=== PATIENT | male | born 1970 | race Caucasian/White ===

== ENCOUNTER 2017-10-14 09:05 | Day surgery (SDC) | payer MEDICARE, MEDICAID ==
[~2017-10-14 09:05] MED LIST: BACL10TA PO; CALC500T11 PO; CITA20TA11 PO; DIPH1TAB PO; FENT1PAT7 TOP; GABA600T2 PO; HYDR8TAB18 PO; LORA1TAB PO; MIRT15TA8 PO; OMEP20CA10 PO; ONDA8TAB13 PO; PHE12.5T PO; ZIN220C PO; [UNRECOGNIZED DRUG - REMARK] TD
[2017-10-14] MEDS ORDERED: LIDOcaine 2% 5ml jelly ONE (09:45)
== END 2017-10-14 10:49 | disposition home or self-care (01) ==
LOC: WOUND CARE 09:05
PROVIDERS: ATTEND Surgery
DX: L97.811 Non-pressure chronic ulcer of other part of right lower leg limited to breakdown of skin (principal); L97.521 Non-pressure chronic ulcer of other part of left foot limited to breakdown of skin; I10 Essential (primary) hypertension; K21.9 Gastro-esophageal reflux disease without esophagitis; I95.1 Orthostatic hypotension; F15.10 Other stimulant abuse, uncomplicated; F17.210 Nicotine dependence, cigarettes, uncomplicated; F41.9 Anxiety disorder, unspecified; F32.9 Major depressive disorder, single episode, unspecified; F11.20 Opioid dependence, uncomplicated; Z90.49 Acquired absence of other specified parts of digestive tract; Z89.511 Acquired absence of right leg below knee
CPT/HCPCS: 11042; 87070; 87075; 87077; 87102; 87186; A6021

== ENCOUNTER 2017-10-20 10:29 | Outpatient (CLI) | payer MEDICARE, MEDICAID ==
[2017-10-20] MEDS ORDERED: LIDOcaine 2% 5ml jelly ONE (12:02)
[2017-10-20] MEDS ORDERED: gentamicin 0.1% topical ointment 15gm TP ONE (12:52)
== END 2017-10-20 13:05 | disposition home or self-care (01) ==
LOC: WOUND CARE 10:29 → EDSTATUS 10:30 → WOUND CARE 13:05
PROVIDERS: ATTEND Surgery
DX: L97.811 Non-pressure chronic ulcer of other part of right lower leg limited to breakdown of skin (principal); I10 Essential (primary) hypertension; K21.9 Gastro-esophageal reflux disease without esophagitis; F41.9 Anxiety disorder, unspecified; F32.9 Major depressive disorder, single episode, unspecified; F17.210 Nicotine dependence, cigarettes, uncomplicated; F11.20 Opioid dependence, uncomplicated; F15.10 Other stimulant abuse, uncomplicated; Z90.49 Acquired absence of other specified parts of digestive tract; Z89.511 Acquired absence of right leg below knee
CPT/HCPCS: 99215; A6223

== ENCOUNTER 2017-10-25 11:04 | Outpatient (CLI) | payer MEDICARE, MEDICAID ==
[2017-10-25] MEDS ORDERED: LIDOcaine 2% 5ml jelly ONE ×2 (11:25)
== END 2017-10-25 12:00 | disposition home or self-care (01) ==
LOC: WOUND CARE 11:04
PROVIDERS: ATTEND Surgery
DX: L97.811 Non-pressure chronic ulcer of other part of right lower leg limited to breakdown of skin (principal); I10 Essential (primary) hypertension; K21.9 Gastro-esophageal reflux disease without esophagitis; F41.9 Anxiety disorder, unspecified; F32.9 Major depressive disorder, single episode, unspecified; F17.210 Nicotine dependence, cigarettes, uncomplicated; F11.20 Opioid dependence, uncomplicated; F15.10 Other stimulant abuse, uncomplicated; Z90.49 Acquired absence of other specified parts of digestive tract; Z89.511 Acquired absence of right leg below knee
CPT/HCPCS: 93922; 99215; A6223; A6446

== ENCOUNTER 2017-10-27 11:15 | Outpatient (CLI) | payer MEDICARE, MEDICAID ==
[2017-10-27] MEDS ORDERED: gentamicin 0.1% topical ointment 15gm TP ONE (12:03)
== END 2017-10-27 12:15 | disposition home or self-care (01) ==
LOC: WOUND CARE 11:15 → EDSTATUS 11:30 → WOUND CARE 12:15
PROVIDERS: ATTEND Surgery
DX: L97.811 Non-pressure chronic ulcer of other part of right lower leg limited to breakdown of skin (principal); I10 Essential (primary) hypertension; K21.9 Gastro-esophageal reflux disease without esophagitis; F41.9 Anxiety disorder, unspecified; F32.9 Major depressive disorder, single episode, unspecified; F17.210 Nicotine dependence, cigarettes, uncomplicated; F11.20 Opioid dependence, uncomplicated; F15.10 Other stimulant abuse, uncomplicated; Z90.49 Acquired absence of other specified parts of digestive tract; Z89.511 Acquired absence of right leg below knee
CPT/HCPCS: 99215; A6209

== ENCOUNTER 2017-11-01 11:11 | Day surgery (SDC) | payer MEDICARE, MEDICAID ==
[2017-11-01] MEDS ORDERED: LIDOcaine 2% 5ml jelly ONE (11:53)
[2017-11-01] MEDS ORDERED: gentamicin 0.1% topical ointment 15gm TP ONE (12:40)
[2017-11-01] MEDS ORDERED: LEVO500T89 PO (14:04)
[2017-11-01] MEDS ORDERED: CLIN-80 PO (14:06)
== END 2017-11-01 12:48 | disposition home or self-care (01) ==
LOC: WOUND CARE 11:11
PROVIDERS: ATTEND Surgery
DX: L97.811 Non-pressure chronic ulcer of other part of right lower leg limited to breakdown of skin (principal); I10 Essential (primary) hypertension; K21.9 Gastro-esophageal reflux disease without esophagitis; F41.9 Anxiety disorder, unspecified; F32.9 Major depressive disorder, single episode, unspecified; F17.210 Nicotine dependence, cigarettes, uncomplicated; F11.20 Opioid dependence, uncomplicated; F15.10 Other stimulant abuse, uncomplicated; Z90.49 Acquired absence of other specified parts of digestive tract; Z89.511 Acquired absence of right leg below knee
CPT/HCPCS: 97597; A6223

== ENCOUNTER 2017-11-04 17:09 | Inpatient (IN) | payer MEDICARE, MEDICAID ==
[~2017-11-04] VITALS: Ht 198.1 cm; Wt 95.5 kg
[~2017-11-04 17:09] MED LIST changes: +CLIN-80 PO; +LEVO500T89 PO
[2017-11-04 19:09] LABS: BASOPHILS % (AUTO) 0.2 % (0-1); EOSINOPHILS # (AUTO) 0.4 X10'3 (0-0.9); EOSINOPHILS % (AUTO) 3.6 % (0-6); HEMATOCRIT 29.6 % (42.0-52.0); HEMOGLOBIN 9.9 g/dl (14.0-17.9); LYMPHOCYTES # (AUTO) 0.9 X10'3 (1.1-4.8); LYMPHOCYTES % (AUTO) 8.6 % (21-51); MEAN CORPUSCULAR HEMOGLOBIN 31.5 PG (27.0-31.0); MEAN CORPUSCULAR HGB CONC 33.5 % (33.0-36.5); MEAN PLATELET VOLUME 8.4 FL (7.4-10.4); MONOCYTES # (AUTO) 0.4 X10'3 (0-0.9); MONOCYTES % (AUTO) 4.2 % (2-12); NEUTROPHILS # (AUTO) 8.9 X10'3 (1.8-7.7); NEUTROPHILS % (AUTO) 83.4 % (42-75); PLATELET COUNT 116 X10'3 (140-440); RED BLOOD COUNT 3.15 X10'6 (4.70-6.10); RED CELL DISTRIBUTION WIDTH 14.8 % (11.5-14.5); WHITE BLOOD COUNT 10.6 X10'3 (4.5-11.0)
[2017-11-04 19:21] LABS: INR 1.1 INR; PARTIAL THROMBOPLASTIN TIME 26 SECONDS (22-32)
[2017-11-04 19:26] LABS: ALANINE AMINOTRANSFERASE 18 U/L (12-78); ALBUMIN 3.4 G/DL (3.4-5.0); ALBUMIN/GLOBULIN RATIO 0.9 (1.1-1.5); ALKALINE PHOSPHATASE 73 IU/L (46-116); ANION GAP 10 (8-16); ASPARTATE AMINO TRANSFERASE 18 U/L (10-37); BILIRUBIN,TOTAL 0.5 MG/DL (0.1-1.0); BLOOD UREA NITROGEN 19 MG/DL (7-18); BUN/CREATININE RATIO 8.3 (5.4-32.0); CALCIUM 8.3 MG/DL (8.5-10.1); CHLORIDE 109 MMOL/L (99-107); ETHANOL < 0.010 GM/DL (0.0-0.010); GLUCOSE 91 MG/DL (70-104); POTASSIUM 3.9 MMOL/L (3.5-5.1); SODIUM 141 MMOL/L (135-145); TOTAL CARBON DIOXIDE 22.5 MMOL/L (24-32); TOTAL PROTEIN 7.4 G/DL (6.4-8.2); eGFR 31 ML/MIN
[2017-11-04 19:27] LABS: ACETAMINOPHEN < 2.0 UG/ML (10-30)
[2017-11-04 19:37] LABS: CLARITY,URINE CLEAR (Clear); COLOR,URINE YELLOW (Yellow); GLUCOSE, URINE NEGATIVE (Neg); KETONES,URINE NEGATIVE (Neg); LEUKOCYTE ESTERASE ,URINE NEGATIVE (Neg); NITRITES, URINE NEGATIVE (Neg); OCCULT BLOOD,URINE NEGATIVE (Neg); PROTEIN,URINE TRACE mg/dl (Neg); UROBILINOGEN,URINE 0.2 E.U/dL (0.2-1.0)
[2017-11-04 19:42] LABS: UA COLLECTION TYPE URINAL
[2017-11-04 19:53] LABS: URINE AMPHETAMINE SCREEN NEGATIVE (Neg)
[2017-11-04 19:56] LABS: URINE BARBITUATE SCREEN NEGATIVE (Neg); URINE BENZODIAZEPINES SCREEN NEGATIVE (Neg); URINE CANNABINOID SCREEN NEGATIVE (Neg); URINE COCAINE SCREEN NEGATIVE (Neg); URINE METHADONE SCREEN NEGATIVE (Neg); URINE OPIATE SCREEN POSITIVE (Neg); URINE PHENCYCLIDINE SCREEN NEGATIVE (Neg)
[2017-11-04 20:18] LABS: BACTERIA,URINE NONE SEEN /HPF (Neg); RBC,URINE 0-2 /HPF (0-2); SQUAMOUS EPITHELIAL CELL,UR FEW /LPF (FEW); WBC,URINE 0-4 /HPF (0-4)
[2017-11-04 20:19] LABS: HYALINE CASTS 0-3 /LPF (NEGATIVE); MUCUS STRANDS FEW /LPF (Neg); YEAST FEW /HPF (NEGATIVE)
[2017-11-04] MEDS ORDERED: normal saline 1000ML IV soln IVB ONE (21:05)
[2017-11-04] MEDS ORDERED: mag hydrox/Alum hydrox/simeth 30ml oral suspension PO PRN (22:20)
[2017-11-04] MEDS ORDERED: potassium Cl 20 mEq SR tablet PO PRN ×2 (22:20)
[2017-11-04] MEDS ORDERED: magnesium Cl slow-release 64mg tablet PO PRN (22:20)
[2017-11-04] MEDS ORDERED: magnesium 4gm in 100ml NS 100 ML IV PRN (22:20)
[2017-11-04] MEDS ORDERED: potassium Cl 40MEQ/NS 500ml 500 ML IV PRN ×2 (22:20)
[2017-11-04] MEDS ORDERED: magnesium 2GM in 50ml NS 50 ML IV PRN (22:20)
[2017-11-04] MEDS ORDERED: magnesium hydroxide 30ml (MOM) UD suspension PO PRN (22:20)
[2017-11-04] MEDS ORDERED: acetaminophen 325mg tablet PO PRN (22:20)
[2017-11-05] VITALS: BP 109/61
[2017-11-05] MEDS: HYDROcodone/acetaminophen 5mg/325mg tablet PO PRN ×4 (00:34→17:44)
[2017-11-05] MEDS: diphenoxylate/atropine tablet (Lomotil) PO SCH ×4 (00:35→23:34)
[2017-11-05] MEDS: normal saline 1000ml 1,000 ML IV SCH ×3 (00:50→17:44)
[2017-11-05 06:13] LABS: BASOPHILS % (AUTO) 0.3 % (0-1); EOSINOPHILS # (AUTO) 0.4 X10'3 (0-0.9); EOSINOPHILS % (AUTO) 5.3 % (0-6); HEMATOCRIT 26.6 % (42.0-52.0); HEMOGLOBIN 8.9 g/dl (14.0-17.9); LYMPHOCYTES # (AUTO) 1.1 X10'3 (1.1-4.8); LYMPHOCYTES % (AUTO) 15.3 % (21-51); MEAN CORPUSCULAR HEMOGLOBIN 31.8 PG (27.0-31.0); MEAN CORPUSCULAR HGB CONC 33.7 % (33.0-36.5); MEAN CORPUSCULAR VOLUME 94.5 FL (78-98); MEAN PLATELET VOLUME 8.6 FL (7.4-10.4); MONOCYTES # (AUTO) 0.3 X10'3 (0-0.9); NEUTROPHILS # (AUTO) 5.1 X10'3 (1.8-7.7); NEUTROPHILS % (AUTO) 74.1 % (42-75); PLATELET COUNT 101 X10'3 (140-440); RED BLOOD COUNT 2.81 X10'6 (4.70-6.10); RED CELL DISTRIBUTION WIDTH 14.9 % (11.5-14.5); WHITE BLOOD COUNT 6.9 X10'3 (4.5-11.0)
[2017-11-05 06:32] LABS: ALBUMIN 2.8 G/DL (3.4-5.0); ANION GAP 12 (8-16); BLOOD UREA NITROGEN 17 MG/DL (7-18); BUN/CREATININE RATIO 8.9 (5.4-32.0); CALCIUM 8.1 MG/DL (8.5-10.1); CHLORIDE 113 MMOL/L (99-107); GLUCOSE 83 MG/DL (70-104); POTASSIUM 3.5 MMOL/L (3.5-5.1); SODIUM 146 MMOL/L (135-145); TOTAL CARBON DIOXIDE 21.1 MMOL/L (24-32); eGFR 39 ML/MIN
[2017-11-05] MEDS ORDERED: HYDR8TAB16 PO (06:32)
[2017-11-05 06:35] LABS: MAGNESIUM 0.9 MG/DL (1.5-2.4)
[2017-11-05] MEDS: K and/or MAG REPLACEMENT MC SCH (06:58)
[2017-11-05 07:00] VITALS: BP 102/55
[2017-11-05] MEDS: heparin, porcine 5000 units/ml vial SQ SCH ×2 (08:00→20:00)
[2017-11-05] MEDS ORDERED: non-formulary drug (Omeprazole 1 CAP) PO SCH (08:00)
[2017-11-05] MEDS: levoFLOXACIN-Levaquin 750MG/D5 150 ML IV SCH (08:12)
[2017-11-05] MEDS: zinc sulfate 220mg capsule PO SCH ×2 (08:12→19:59)
[2017-11-05] MEDS: mirtazapine 15mg tablet PO SCH (08:12)
[2017-11-05] MEDS: citalopram 20mg tablet PO SCH (08:12)
[2017-11-05] MEDS: gabapentin 300mg capsule PO SCH ×3 (08:13→20:52)
[2017-11-05] MEDS: pantoprazole 40mg Tablet.DR PO SCH (08:13)
[2017-11-05 11:00] VITALS: BP 86/49
[2017-11-05] MEDS ORDERED: thiamine inj. 100 MG, MVI, adult No.4 with vit. K 10 ML in dextrose 5% water 500ml 489 ML IV SCH ×3 (11:25)
[2017-11-05] MEDS: lactobacillus rhamnosus 10,000 MMU CELLS/CAPSULE PO SCH (17:44)
[2017-11-05] MEDS: Protein Smoothie (high protein) 240ml (8oz) cup PO SCH (18:27)
[2017-11-05 19:00] VITALS: BP 97/50
[2017-11-05] MEDS: morphine 2 MG/ML inj. syringe IV PRN ×2 (19:30→23:34)
[2017-11-05] MEDS: ondansetron/PF 4mg/2ml inj IV PRN (19:59)
[2017-11-06] VITALS: BP 90/52
[2017-11-06] MEDS: morphine 2 MG/ML inj. syringe IV PRN (05:04)
[2017-11-06 06:23] LABS: BASOPHILS % (AUTO) 0.3 % (0-1); EOSINOPHILS # (AUTO) 0.2 X10'3 (0-0.9); EOSINOPHILS % (AUTO) 4.5 % (0-6); HEMATOCRIT 25.2 % (42.0-52.0); HEMOGLOBIN 8.7 g/dl (14.0-17.9); LYMPHOCYTES # (AUTO) 0.9 X10'3 (1.1-4.8); LYMPHOCYTES % (AUTO) 17.8 % (21-51); MEAN CORPUSCULAR HEMOGLOBIN 32.2 PG (27.0-31.0); MEAN CORPUSCULAR HGB CONC 34.4 % (33.0-36.5); MEAN CORPUSCULAR VOLUME 93.7 FL (78-98); MEAN PLATELET VOLUME 8.6 FL (7.4-10.4); MONOCYTES # (AUTO) 0.3 X10'3 (0-0.9); MONOCYTES % (AUTO) 5.5 % (2-12); NEUTROPHILS # (AUTO) 3.4 X10'3 (1.8-7.7); NEUTROPHILS % (AUTO) 71.9 % (42-75); PLATELET COUNT 95 X10'3 (140-440); RED BLOOD COUNT 2.69 X10'6 (4.70-6.10); RED CELL DISTRIBUTION WIDTH 14.9 % (11.5-14.5); WHITE BLOOD COUNT 4.8 X10'3 (4.5-11.0)
[2017-11-06 06:57] VITALS: BP 89/41
[2017-11-06 07:17] LABS: ALBUMIN 2.7 G/DL (3.4-5.0); ANION GAP 10 (8-16); BLOOD UREA NITROGEN 15 MG/DL (7-18); BUN/CREATININE RATIO 10.7 (5.4-32.0); CALCIUM 8.2 MG/DL (8.5-10.1); CHLORIDE 114 MMOL/L (99-107); GLUCOSE 90 MG/DL (70-104); MAGNESIUM 1.7 MG/DL (1.5-2.4); POTASSIUM 3.5 MMOL/L (3.5-5.1); SODIUM 144 MMOL/L (135-145); TOTAL CARBON DIOXIDE 20.4 MMOL/L (24-32); eGFR 55 ML/MIN
[2017-11-06] MEDS: K and/or MAG REPLACEMENT MC SCH (08:00)
[2017-11-06] MEDS: heparin, porcine 5000 units/ml vial SQ SCH ×2 (08:00→19:30)
[2017-11-06] MEDS ORDERED: enoxaparin 40mg/0.4ml syringe SUBCUT SCH (08:00)
[2017-11-06] MEDS: mirtazapine 15mg tablet PO SCH (08:37)
[2017-11-06] MEDS: zinc sulfate 220mg capsule PO SCH ×2 (08:37→19:30)
[2017-11-06] MEDS: citalopram 20mg tablet PO SCH (08:38)
[2017-11-06] MEDS: levoFLOXACIN-Levaquin 750MG/D5 150 ML IV SCH (08:38)
[2017-11-06] MEDS: gabapentin 300mg capsule PO SCH ×3 (08:39→21:23)
[2017-11-06] MEDS: pantoprazole 40mg Tablet.DR PO SCH (08:40)
[2017-11-06] MEDS: lactobacillus rhamnosus 10,000 MMU CELLS/CAPSULE PO SCH ×2 (08:40→16:34)
[2017-11-06] MEDS: HYDROcodone/acetaminophen 5mg/325mg tablet PO PRN (08:41)
[2017-11-06] MEDS: Protein Smoothie (high protein) 240ml (8oz) cup PO SCH ×3 (08:42→19:28)
[2017-11-06] MEDS: diphenoxylate/atropine tablet (Lomotil) PO SCH ×2 (09:08→16:34)
[2017-11-06 11:00] VITALS: BP 91/52
[2017-11-06] MEDS: oxyCODONE IR 5mg (immed. release) tablet PO PRN (13:24)
[2017-11-06 19:00] VITALS: BP 103/60
[2017-11-06] MEDS: oxyCODONE SR 10mg (sust. release) tab PO SCH (19:30)
[2017-11-07] VITALS: BP 104/62
[2017-11-07] MEDS: diphenoxylate/atropine tablet (Lomotil) PO SCH ×3 (00:28→16:09)
[2017-11-07] MEDS: oxyCODONE IR 5mg (immed. release) tablet PO PRN ×2 (01:29→22:53)
[2017-11-07 07:01] LABS: BASOPHILS % (AUTO) 0.2 % (0-1); EOSINOPHILS # (AUTO) 0.2 X10'3 (0-0.9); EOSINOPHILS % (AUTO) 4.2 % (0-6); HEMATOCRIT 26.1 % (42.0-52.0); HEMOGLOBIN 8.8 g/dl (14.0-17.9); LYMPHOCYTES # (AUTO) 1.3 X10'3 (1.1-4.8); LYMPHOCYTES % (AUTO) 32.3 % (21-51); MEAN CORPUSCULAR HEMOGLOBIN 31.7 PG (27.0-31.0); MEAN CORPUSCULAR HGB CONC 33.7 % (33.0-36.5); MEAN CORPUSCULAR VOLUME 93.9 FL (78-98); MEAN PLATELET VOLUME 8.6 FL (7.4-10.4); MONOCYTES # (AUTO) 0.3 X10'3 (0-0.9); MONOCYTES % (AUTO) 7.2 % (2-12); NEUTROPHILS # (AUTO) 2.2 X10'3 (1.8-7.7); NEUTROPHILS % (AUTO) 56.1 % (42-75); PLATELET COUNT 103 X10'3 (140-440); RED BLOOD COUNT 2.78 X10'6 (4.70-6.10); RED CELL DISTRIBUTION WIDTH 14.9 % (11.5-14.5); WHITE BLOOD COUNT 3.9 X10'3 (4.5-11.0)
[2017-11-07 07:09] LABS: ALBUMIN 2.6 G/DL (3.4-5.0); ANION GAP 10 (8-16); BLOOD UREA NITROGEN 14 MG/DL (7-18); BUN/CREATININE RATIO 11.7 (5.4-32.0); CALCIUM 8.6 MG/DL (8.5-10.1); CHLORIDE 112 MMOL/L (99-107); GLUCOSE 93 MG/DL (70-104); MAGNESIUM 1.3 MG/DL (1.5-2.4); POTASSIUM 3.5 MMOL/L (3.5-5.1); SODIUM 144 MMOL/L (135-145); TOTAL CARBON DIOXIDE 22.3 MMOL/L (24-32); eGFR 65 ML/MIN
[2017-11-07 07:32] VITALS: BP 104/61
[2017-11-07] MEDS: K and/or MAG REPLACEMENT MC SCH (07:37)
[2017-11-07] MEDS: mirtazapine 15mg tablet PO SCH (07:51)
[2017-11-07] MEDS: citalopram 20mg tablet PO SCH (07:51)
[2017-11-07] MEDS: pantoprazole 40mg Tablet.DR PO SCH (07:51)
[2017-11-07] MEDS: oxyCODONE SR 10mg (sust. release) tab PO SCH ×2 (07:51→20:26)
[2017-11-07] MEDS: lactobacillus rhamnosus 10,000 MMU CELLS/CAPSULE PO SCH ×2 (07:51→18:03)
[2017-11-07] MEDS: clonazePAM 0.5mg tablet PO SCH ×2 (07:51→20:26)
[2017-11-07] MEDS: gabapentin 300mg capsule PO SCH ×3 (07:51→20:26)
[2017-11-07] MEDS: Protein Smoothie (high protein) 240ml (8oz) cup PO SCH ×3 (07:52→18:01)
[2017-11-07] MEDS: heparin, porcine 5000 units/ml vial SQ SCH ×2 (07:58→20:00)
[2017-11-07] MEDS: zinc sulfate 220mg capsule PO SCH ×2 (07:58→20:26)
[2017-11-07] MEDS: levoFLOXACIN 750MG TABLET PO SCH (16:04)
[2017-11-07 19:30] VITALS: BP 93/56
[2017-11-07] MEDS: ondansetron/PF 4mg/2ml inj IV PRN (21:53)
[2017-11-07 23:00] VITALS: BP 115/86
[2017-11-08] MEDS: diphenoxylate/atropine tablet (Lomotil) PO SCH ×3 (00:04→15:38)
[2017-11-08 06:06] LABS: BASOPHILS % (AUTO) 0.3 % (0-1); EOSINOPHILS # (AUTO) 0.2 X10'3 (0-0.9); EOSINOPHILS % (AUTO) 4.7 % (0-6); HEMATOCRIT 26.5 % (42.0-52.0); HEMOGLOBIN 9.1 g/dl (14.0-17.9); LYMPHOCYTES # (AUTO) 1.4 X10'3 (1.1-4.8); MEAN CORPUSCULAR HGB CONC 34.3 % (33.0-36.5); MEAN CORPUSCULAR VOLUME 93.4 FL (78-98); MEAN PLATELET VOLUME 8.6 FL (7.4-10.4); MONOCYTES # (AUTO) 0.2 X10'3 (0-0.9); MONOCYTES % (AUTO) 5.7 % (2-12); NEUTROPHILS # (AUTO) 2.4 X10'3 (1.8-7.7); NEUTROPHILS % (AUTO) 56.3 % (42-75); PLATELET COUNT 103 X10'3 (140-440); RED BLOOD COUNT 2.83 X10'6 (4.70-6.10); RED CELL DISTRIBUTION WIDTH 14.5 % (11.5-14.5); WHITE BLOOD COUNT 4.3 X10'3 (4.5-11.0)
[2017-11-08 06:24] LABS: ALBUMIN 2.7 G/DL (3.4-5.0); ANION GAP 8 (8-16); BLOOD UREA NITROGEN 19 MG/DL (7-18); BUN/CREATININE RATIO 14.6 (5.4-32.0); CALCIUM 8.4 MG/DL (8.5-10.1); CHLORIDE 110 MMOL/L (99-107); GLUCOSE 86 MG/DL (70-104); POTASSIUM 3.6 MMOL/L (3.5-5.1); SODIUM 141 MMOL/L (135-145); TOTAL CARBON DIOXIDE 22.8 MMOL/L (24-32); eGFR 60 ML/MIN
[2017-11-08] MEDS ORDERED: magnesium 4gm in 100ml NS 100 ML IV PRN (06:45)
[2017-11-08] MEDS ORDERED: potassium Cl 20 mEq SR tablet PO PRN ×2 (06:45)
[2017-11-08] MEDS ORDERED: magnesium 2GM in 50ml NS 50 ML IV PRN (06:45)
[2017-11-08] MEDS ORDERED: potassium Cl 40MEQ/NS 500ml 500 ML IV PRN ×2 (06:45)
[2017-11-08 06:57] VITALS: BP 100/55
[2017-11-08] MEDS: lactobacillus rhamnosus 10,000 MMU CELLS/CAPSULE PO SCH ×2 (07:16→17:16)
[2017-11-08] MEDS: mirtazapine 15mg tablet PO SCH (07:17)
[2017-11-08] MEDS: citalopram 20mg tablet PO SCH (07:17)
[2017-11-08] MEDS: oxyCODONE SR 10mg (sust. release) tab PO SCH ×2 (07:17→20:43)
[2017-11-08] MEDS: gabapentin 300mg capsule PO SCH ×3 (07:17→20:43)
[2017-11-08] MEDS: clonazePAM 0.5mg tablet PO SCH ×2 (07:17→20:43)
[2017-11-08] MEDS: pantoprazole 40mg Tablet.DR PO SCH (07:17)
[2017-11-08] MEDS: zinc sulfate 220mg capsule PO SCH ×2 (07:18→20:43)
[2017-11-08] MEDS: magnesium Cl slow-release 64mg tablet PO PRN ×2 (07:18→20:42)
[2017-11-08] MEDS: Protein Smoothie (high protein) 240ml (8oz) cup PO SCH ×3 (08:00→18:04)
[2017-11-08] MEDS: heparin, porcine 5000 units/ml vial SQ SCH ×2 (08:00→20:00)
[2017-11-08] MEDS: K and/or MAG REPLACEMENT MC SCH (08:00)
[2017-11-08 08:29] LABS: HEP A AB, IGM Negative (Negative); HEP B CORE AB, IGM Negative (Negative); HEPATITIS C ANTIBODY <0.1 s/co ratio (0.0-0.9)
[2017-11-08 11:00] VITALS: BP 88/49
[2017-11-08] MEDS: levoFLOXACIN 750MG TABLET PO SCH (11:01)
[2017-11-08] MEDS ORDERED: normal saline 500ml IV soln 1,000 ML IV ONE (12:15)
[2017-11-08 12:25] VITALS: BP 88/49
[2017-11-08 15:37] VITALS: BP 103/66
[2017-11-08] MEDS: oxyCODONE IR 5mg (immed. release) tablet PO PRN (15:38)
[2017-11-08 20:00] VITALS: BP 94/57
[2017-11-08] MEDS: nicotine 7mg patch - 24hr TD SCH (22:37)
[2017-11-08 23:00] VITALS: BP 95/50
[2017-11-09] MEDS: diphenoxylate/atropine tablet (Lomotil) PO SCH ×3 (00:14→16:43)
[2017-11-09] MEDS: oxyCODONE IR 5mg (immed. release) tablet PO PRN ×2 (01:26→11:57)
[2017-11-09] MEDS: ondansetron/PF 4mg/2ml inj IV PRN ×2 (04:49→13:47)
[2017-11-09 06:02] LABS: BASOPHILS % (AUTO) 0.2 % (0-1); EOSINOPHILS # (AUTO) 0.3 X10'3 (0-0.9); EOSINOPHILS % (AUTO) 5.6 % (0-6); HEMATOCRIT 27.9 % (42.0-52.0); HEMOGLOBIN 9.8 g/dl (14.0-17.9); LYMPHOCYTES # (AUTO) 1.6 X10'3 (1.1-4.8); MEAN CORPUSCULAR HEMOGLOBIN 32.2 PG (27.0-31.0); MEAN CORPUSCULAR VOLUME 91.9 FL (78-98); MEAN PLATELET VOLUME 7.9 FL (7.4-10.4); MONOCYTES # (AUTO) 0.4 X10'3 (0-0.9); MONOCYTES % (AUTO) 7.5 % (2-12); NEUTROPHILS # (AUTO) 2.6 X10'3 (1.8-7.7); NEUTROPHILS % (AUTO) 53.7 % (42-75); PLATELET COUNT 110 X10'3 (140-440); RED BLOOD COUNT 3.03 X10'6 (4.70-6.10); RED CELL DISTRIBUTION WIDTH 14.4 % (11.5-14.5); WHITE BLOOD COUNT 4.8 X10'3 (4.5-11.0)
[2017-11-09 06:22] LABS: ALBUMIN 2.9 G/DL (3.4-5.0); ANION GAP 11 (8-16); BLOOD UREA NITROGEN 18 MG/DL (7-18); BUN/CREATININE RATIO 16.4 (5.4-32.0); CALCIUM 8.6 MG/DL (8.5-10.1); CHLORIDE 109 MMOL/L (99-107); GLUCOSE 83 MG/DL (70-104); POTASSIUM 3.7 MMOL/L (3.5-5.1); SODIUM 142 MMOL/L (135-145); TOTAL CARBON DIOXIDE 21.9 MMOL/L (24-32); eGFR 72 ML/MIN
[2017-11-09 06:41] LABS: MAGNESIUM 0.9 MG/DL (1.5-2.4)
[2017-11-09 06:53] VITALS: BP 94/57
[2017-11-09] MEDS: citalopram 20mg tablet PO SCH (07:09)
[2017-11-09] MEDS: lactobacillus rhamnosus 10,000 MMU CELLS/CAPSULE PO SCH ×2 (07:09→16:43)
[2017-11-09] MEDS: clonazePAM 0.5mg tablet PO SCH ×2 (07:09→21:18)
[2017-11-09] MEDS: gabapentin 300mg capsule PO SCH ×3 (07:10→21:18)
[2017-11-09] MEDS: pantoprazole 40mg Tablet.DR PO SCH (07:10)
[2017-11-09] MEDS: oxyCODONE SR 10mg (sust. release) tab PO SCH ×2 (07:10→21:18)
[2017-11-09] MEDS: nicotine 7mg patch - 24hr TD SCH (07:11)
[2017-11-09] MEDS: zinc sulfate 220mg capsule PO SCH ×2 (07:12→21:18)
[2017-11-09] MEDS: heparin, porcine 5000 units/ml vial SQ SCH ×2 (07:13→20:00)
[2017-11-09] MEDS: mirtazapine 15mg tablet PO SCH (07:13)
[2017-11-09] MEDS: magnesium Cl slow-release 64mg tablet PO PRN (07:14)
[2017-11-09] MEDS: K and/or MAG REPLACEMENT MC SCH (08:00)
[2017-11-09] MEDS: Protein Smoothie (high protein) 240ml (8oz) cup PO SCH ×3 (08:15→17:54)
[2017-11-09 11:00] VITALS: BP 92/54
[2017-11-09] MEDS ORDERED: magnesium 2GM in 50ml NS 50 ML IV ONE (11:10)
[2017-11-09] MEDS: levoFLOXACIN 750MG TABLET PO SCH (11:56)
[2017-11-09 18:00] VITALS: BP 99/58
[2017-11-09 23:00] VITALS: BP 98/53
[2017-11-10] MEDS: diphenoxylate/atropine tablet (Lomotil) PO SCH ×2 (00:19→08:26)
[2017-11-10] MEDS: oxyCODONE IR 5mg (immed. release) tablet PO PRN ×2 (02:01→11:36)
[2017-11-10 06:43] LABS: MAGNESIUM 1.2 MG/DL (1.5-2.4); POTASSIUM 3.6 MMOL/L (3.5-5.1)
[2017-11-10] MEDS: K and/or MAG REPLACEMENT MC SCH (08:00)
[2017-11-10] MEDS: heparin, porcine 5000 units/ml vial SQ SCH (08:00)
[2017-11-10] MEDS: mirtazapine 15mg tablet PO SCH (08:00)
[2017-11-10] MEDS: lactobacillus rhamnosus 10,000 MMU CELLS/CAPSULE PO SCH (08:24)
[2017-11-10] MEDS: nicotine 7mg patch - 24hr TD SCH (08:24)
[2017-11-10] MEDS: pantoprazole 40mg Tablet.DR PO SCH (08:25)
[2017-11-10] MEDS: citalopram 20mg tablet PO SCH (08:25)
[2017-11-10] MEDS: gabapentin 300mg capsule PO SCH ×2 (08:26→13:04)
[2017-11-10] MEDS: oxyCODONE SR 10mg (sust. release) tab PO SCH (08:26)
[2017-11-10] MEDS: clonazePAM 0.5mg tablet PO SCH (08:26)
[2017-11-10] MEDS: zinc sulfate 220mg capsule PO SCH (08:27)
[2017-11-10] MEDS: Protein Smoothie (high protein) 240ml (8oz) cup PO SCH ×2 (08:29→13:02)
[2017-11-10 08:35] VITALS: BP 98/52
[2017-11-10] MEDS: levoFLOXACIN 750MG TABLET PO SCH (11:35)
[2017-11-10 12:00] VITALS: BP 93/45
[2017-11-10] MEDS ORDERED: OXYC10TA57 PO (12:08)
[2017-11-10] MEDS ORDERED: OXYC-658 PO (12:08)
[2017-11-10] MEDS ORDERED: LORA1TAB PO (12:09)
[2017-11-10] MEDS ORDERED: MAGN400C PO (15:40)
== END 2017-11-10 17:10 | disposition home or self-care (01) | DRG 917 ==
LOC: ER 17:10 → ED HOLD 22:16 → MED 3N 23:38
PROVIDERS: ADMIT Internal Medicine; ATTEND Internal Medicine
DX: T40.2X1A Poisoning by other opioids, accidental (unintentional), initial encounter (principal); G92 Toxic encephalopathy; N17.9 Acute kidney failure, unspecified; I95.9 Hypotension, unspecified; D69.59 Other secondary thrombocytopenia; G62.9 Polyneuropathy, unspecified; L03.311 Cellulitis of abdominal wall; K72.90 Hepatic failure, unspecified without coma; R44.3 Hallucinations, unspecified; L97.919 Non-pressure chronic ulcer of unspecified part of right lower leg with unspecified severity; T42.8X1A Poisoning by antiparkinsonism drugs and other central muscle-tone depressants, accidental (unintentional), initial encounter; T42.4X1A Poisoning by benzodiazepines, accidental (unintentional), initial encounter; F31.9 Bipolar disorder, unspecified; D63.8 Anemia in other chronic diseases classified elsewhere; E86.0 Dehydration; F41.9 Anxiety disorder, unspecified; G89.29 Other chronic pain; I10 Essential (primary) hypertension; K21.9 Gastro-esophageal reflux disease without esophagitis; K76.9 Liver disease, unspecified; L98.9 Disorder of the skin and subcutaneous tissue, unspecified; M54.9 Dorsalgia, unspecified; Z93.3 Colostomy status; Z88.1 Allergy status to other antibiotic agents; Z88.0 Allergy status to penicillin; Y92.89 Other specified places as the place of occurrence of the external cause
CPT/HCPCS: 36415; 70450; 71045; 80048; 80053; 80305; 80320; 80329; 81001; 82140; 82948; 83735; 84132; 85025; 85610; 85730; 86705; 86709; 86803; 87070; 93005; 97162; 97530; 99285; A4315; A4371; A6209; A6223; A6446; A6449; J1644; J1956; J2270; J2405; J3411; J3475; J7030; J7060

== ENCOUNTER 2017-11-30 10:36 | Day surgery (SDC) | payer MEDICARE, MEDICAID ==
[~2017-11-30 10:36] MED LIST changes: -BACL10TA PO; -CLIN-80 PO; -FENT1PAT7 TOP; -HYDR8TAB18 PO; +MAGN400C PO; -ONDA8TAB13 PO; +OXYC-658 PO; +OXYC10TA57 PO; -[UNRECOGNIZED DRUG - REMARK] TD
[2017-11-30] MEDS ORDERED: CLOB15CR4 TOP (12:18)
== END 2017-11-30 12:00 | disposition home or self-care (01) ==
LOC: WOUND CARE 10:36
PROVIDERS: ATTEND Surgery
DX: L97.811 Non-pressure chronic ulcer of other part of right lower leg limited to breakdown of skin (principal); I10 Essential (primary) hypertension; K21.9 Gastro-esophageal reflux disease without esophagitis; F41.9 Anxiety disorder, unspecified; F32.9 Major depressive disorder, single episode, unspecified; F17.210 Nicotine dependence, cigarettes, uncomplicated; F11.20 Opioid dependence, uncomplicated; F15.10 Other stimulant abuse, uncomplicated; Z90.49 Acquired absence of other specified parts of digestive tract; Z89.511 Acquired absence of right leg below knee
CPT/HCPCS: 17250; A6021; A6206; A6243; A6446

== ENCOUNTER 2017-12-07 10:37 | Outpatient (CLI) | payer MEDICARE, MEDICAID ==
[~2017-12-07 10:37] MED LIST changes: +CLOB15CR4 TOP
[2017-12-07] MEDS ORDERED: LIDOcaine 2% 5ml jelly ONE (11:55)
== END 2017-12-07 12:30 | disposition home or self-care (01) ==
LOC: WOUND CARE 10:37
PROVIDERS: ATTEND Surgery
DX: L97.811 Non-pressure chronic ulcer of other part of right lower leg limited to breakdown of skin (principal); I10 Essential (primary) hypertension; K21.9 Gastro-esophageal reflux disease without esophagitis; F41.9 Anxiety disorder, unspecified; F32.9 Major depressive disorder, single episode, unspecified; F17.210 Nicotine dependence, cigarettes, uncomplicated; F11.20 Opioid dependence, uncomplicated; F15.10 Other stimulant abuse, uncomplicated; Z90.49 Acquired absence of other specified parts of digestive tract; Z89.511 Acquired absence of right leg below knee
CPT/HCPCS: 99215; A6446

== ENCOUNTER 2017-12-15 11:02 | Day surgery (SDC) | payer MEDICARE, MEDICAID ==
[~2017-12-15 11:02] MED LIST changes: -LEVO500T89 PO
[2017-12-15] MEDS ORDERED: LIDOcaine 2% 5ml jelly ONE (11:31)
== END 2017-12-15 12:30 | disposition home or self-care (01) ==
LOC: WOUND CARE 11:02
PROVIDERS: ATTEND Surgery
DX: L97.811 Non-pressure chronic ulcer of other part of right lower leg limited to breakdown of skin (principal); K21.9 Gastro-esophageal reflux disease without esophagitis; F41.9 Anxiety disorder, unspecified; F32.9 Major depressive disorder, single episode, unspecified; F17.210 Nicotine dependence, cigarettes, uncomplicated; F11.20 Opioid dependence, uncomplicated; F15.10 Other stimulant abuse, uncomplicated; I10 Essential (primary) hypertension; Z90.49 Acquired absence of other specified parts of digestive tract; Z89.511 Acquired absence of right leg below knee
CPT/HCPCS: 97597; A6206; A6213

== ENCOUNTER 2018-01-13 10:08 | Outpatient (CLI) | payer MEDICARE, MEDICAID ==
[2018-01-13] MEDS ORDERED: LIDOcaine 2% 5ml jelly ONE (11:02)
== END 2018-01-13 11:39 | disposition home or self-care (01) ==
LOC: WOUND CARE 10:08
PROVIDERS: ATTEND Surgery
DX: L97.811 Non-pressure chronic ulcer of other part of right lower leg limited to breakdown of skin (principal); L88 Pyoderma gangrenosum; K21.9 Gastro-esophageal reflux disease without esophagitis; F41.9 Anxiety disorder, unspecified; F32.9 Major depressive disorder, single episode, unspecified; F17.210 Nicotine dependence, cigarettes, uncomplicated; F11.20 Opioid dependence, uncomplicated; F15.10 Other stimulant abuse, uncomplicated; I10 Essential (primary) hypertension; Z90.49 Acquired absence of other specified parts of digestive tract; Z89.511 Acquired absence of right leg below knee
CPT/HCPCS: 99215

== ENCOUNTER 2018-01-27 10:51 | Outpatient (CLI) | payer MEDICARE, MEDICAID | END 2018-01-27 12:07 | disposition home or self-care (01) | LOC: WOUND CARE 10:51 | PROVIDERS: ATTEND Surgery | DX: L97.812 Non-pressure chronic ulcer of other part of right lower leg with fat layer exposed (principal); L88 Pyoderma gangrenosum; K21.9 Gastro-esophageal reflux disease without esophagitis; F41.9 Anxiety disorder, unspecified; F32.9 Major depressive disorder, single episode, unspecified; F17.210 Nicotine dependence, cigarettes, uncomplicated; F11.20 Opioid dependence, uncomplicated; F15.10 Other stimulant abuse, uncomplicated; I10 Essential (primary) hypertension; Z90.49 Acquired absence of other specified parts of digestive tract; Z89.511 Acquired absence of right leg below knee | CPT/HCPCS: 99215; A6449 ==

== ENCOUNTER 2018-02-06 15:07 | Outpatient (CLI) | payer MEDICARE, MEDICAID ==
[~2018-02-06] VITALS: Ht 167.6 cm; Wt 90.7 kg
[2018-02-06 16:54] LABS: PRE OP PROTIME 10.2 SECONDS (9.0-12.0)
[2018-02-06 16:59] LABS: ALBUMIN 3.8 G/DL (3.4-5.0); ALKALINE PHOSPHATASE 75 IU/L (46-116); BLOOD UREA NITROGEN 18 MG/DL (7-18); CALCIUM 8.8 MG/DL (8.5-10.1); CHLORIDE 109 MMOL/L (99-107); PRE OP ALT 16 U/L (30-65); PRE OP ANION GAP 13 (8-16); PRE OP AST 16 U/L (10-37); PRE OP BILIRUB, TOTAL 0.3 MG/DL (0.0-1.0); PRE OP GLUCOSE 67 MG/DL (70-104); PRE OP POTASSIUM 3.6 MMOL/L (3.4-5.1); PRE OP SODIUM 144 MMOL/L (135-145); TOTAL CARBON DIOXIDE 22.4 MMOL/L (24-32); TOTAL PROTEIN 7.5 G/DL (6.4-8.2); eGFR 36 ML/MIN
[2018-02-06 16:59] LABS: CLARITY,URINE SLIGHTLY CLOUDY (Clear); COLOR,URINE YELLOW (Yellow); GLUCOSE, URINE NEGATIVE (Neg); KETONES,URINE NEGATIVE (Neg); LEUKOCYTE ESTERASE ,URINE NEGATIVE (Neg); NITRITES, URINE NEGATIVE (Neg); OCCULT BLOOD,URINE LARGE (Neg); PROTEIN,URINE 100 mg/dl (Neg); UROBILINOGEN,URINE 0.2 E.U/dL (0.2-1.0)
[2018-02-06 17:04] LABS: UA COLLECTION TYPE VOIDED
[2018-02-06 17:23] LABS: MUCUS STRANDS FEW /LPF (Neg); RBC,URINE 50-100 /HPF (0-2); SQUAMOUS EPITHELIAL CELL,UR FEW /LPF (FEW); WBC,URINE 0-4 /HPF (0-4)
[2018-02-06 17:24] LABS: BACTERIA,URINE FEW /HPF (Neg); HYALINE CASTS 0-3 /LPF (NEGATIVE)
[2018-02-06 17:34] LABS: BASOPHILS % (AUTO) 0.1 % (0-1); EOSINOPHILS # (AUTO) 0.3 X10'3 (0-0.9); EOSINOPHILS % (AUTO) 3.3 % (0-6); LYMPHOCYTES # (AUTO) 1.6 X10'3 (1.1-4.8); LYMPHOCYTES % (AUTO) 20.3 % (21-51); MEAN CORPUSCULAR HEMOGLOBIN 33.1 PG (27.0-31.0); MEAN CORPUSCULAR HGB CONC 34.5 % (33.0-36.5); MEAN CORPUSCULAR VOLUME 95.7 FL (78-98); MEAN PLATELET VOLUME 8.9 FL (7.4-10.4); MONOCYTES # (AUTO) 0.4 X10'3 (0-0.9); MONOCYTES % (AUTO) 4.8 % (2-12); NEUTROPHILS # (AUTO) 5.5 X10'3 (1.8-7.7); NEUTROPHILS % (AUTO) 71.5 % (42-75); PRE OP HEMATOCRIT 35.4 % (42.0-52.0); PRE OP HEMOGLOBIN 12.2 g/dL (14.0-17.9); PRE OP PLATELET COUNT 143 X10'3 (140-440); RED CELL DISTRIBUTION WIDTH 15.6 % (11.5-14.5)
[2018-02-08] MEDS ORDERED: ringers solution, lacted 1,000 ML IV SCH (05:00)
[2018-02-08] MEDS ORDERED: clindamycin-Cleocin 900mg/D5W 50 ML IV ONE (05:30)
[2018-02-08] MEDS ORDERED: GENTAMICIN IV ONE (05:30)
[2018-02-08] MEDS ORDERED: famotidine 20mg tablet PO ONE (05:30)
[2018-02-08] MEDS ORDERED: NORMAL SALINE IV ONE (05:30)
== END 2018-02-06 23:59 | disposition home or self-care (01) ==
LOC: PRE-OP 15:07 → EEVIPCON 02-08 14:50 → EDSTATUS 02-08 22:00
PROVIDERS: ATTEND Surgery
DX: K63.2 Fistula of intestine (principal); Z01.812 Encounter for preprocedural laboratory examination
CPT/HCPCS: 36415; 80053; 81001; 85025; 85610; 85730; 86885; 86900; 86901; 86920; 87070; J1580; J3490; J7030; J7120

== ENCOUNTER 2018-02-09 08:53 | Outpatient (CLI) | payer MEDICARE, MEDICAID ==
[~2018-02-09 08:53] MED LIST changes: -OXYC-658 PO; -OXYC10TA57 PO
[2018-02-09] MEDS ORDERED: diatrozoate meglu/diatrozoate sod (37% iodine) 120ML oral solution ONE ×2 (09:29→11:19)
== END 2018-02-09 23:59 | disposition home or self-care (01) ==
LOC: RAD 08:53
PROVIDERS: ATTEND Surgery
DX: K63.2 Fistula of intestine (principal); Z87.891 Personal history of nicotine dependence
CPT/HCPCS: 74270; Q9963

== ENCOUNTER 2018-08-17 10:21 | Outpatient (CLI) | payer MEDICARE, MEDICAID ==
[~2018-08-17 10:21] MED LIST changes: +BACL10TA2 PO; -CITA20TA11 PO; +CITA20TA17 PO; -CLOB15CR4 TOP; -DIPH1TAB PO; +DIPH1TAB29 PO; +GABA-532 PO; -GABA600T2 PO; +HYDR-3964 PO; +HYDR2TAB7 PO; -MAGN400C PO; +MULT1TAB74 PO; +OMEP-50 PO; -OMEP20CA10 PO; +ONDA8TAB13 PO; +OXYC-658 PO; +SUCR1TAB34 PO; -ZIN220C PO
== END 2018-08-17 11:37 | disposition home or self-care (01) ==
LOC: WOUND CARE 10:21 → EDSTATUS 10:30 → WOUND CARE 11:37
PROVIDERS: ATTEND Surgery
DX: T81.89XA Other complications of procedures, not elsewhere classified, initial encounter (principal); L97.812 Non-pressure chronic ulcer of other part of right lower leg with fat layer exposed; L98.492 Non-pressure chronic ulcer of skin of other sites with fat layer exposed; L88 Pyoderma gangrenosum; K21.9 Gastro-esophageal reflux disease without esophagitis; F41.9 Anxiety disorder, unspecified; F32.9 Major depressive disorder, single episode, unspecified; F17.210 Nicotine dependence, cigarettes, uncomplicated; F11.20 Opioid dependence, uncomplicated; F15.10 Other stimulant abuse, uncomplicated; I10 Essential (primary) hypertension; Z90.49 Acquired absence of other specified parts of digestive tract; Z89.511 Acquired absence of right leg below knee; Y83.8 Other surgical procedures as the cause of abnormal reaction of the patient, or of later complication, without mention of misadventure at the time of the procedure
CPT/HCPCS: 99215; A6223; A6021; A6206; A6212; A6243

== ENCOUNTER 2018-08-31 10:40 | Day surgery (SDC) | payer MEDICARE, MEDICAID | END 2018-08-31 12:47 | disposition home or self-care (01) | LOC: WOUND CARE 10:40 | PROVIDERS: ATTEND Surgery | DX: T81.89XD Other complications of procedures, not elsewhere classified, subsequent encounter (principal); L97.812 Non-pressure chronic ulcer of other part of right lower leg with fat layer exposed; L98.492 Non-pressure chronic ulcer of skin of other sites with fat layer exposed; L88 Pyoderma gangrenosum; K21.9 Gastro-esophageal reflux disease without esophagitis; I10 Essential (primary) hypertension; G89.29 Other chronic pain; F41.9 Anxiety disorder, unspecified; F32.9 Major depressive disorder, single episode, unspecified; F17.210 Nicotine dependence, cigarettes, uncomplicated; F11.20 Opioid dependence, uncomplicated; F15.10 Other stimulant abuse, uncomplicated; Z90.49 Acquired absence of other specified parts of digestive tract; Z89.511 Acquired absence of right leg below knee; Y83.8 Other surgical procedures as the cause of abnormal reaction of the patient, or of later complication, without mention of misadventure at the time of the procedure | CPT/HCPCS: 17250; 97597; 97598; A6206; A6212 ==

== ENCOUNTER 2018-09-07 10:16 | Day surgery (SDC) | payer MEDICARE, MEDICAID ==
--- NOTE | 2018-09-07 12:30 | NUR ---
Patient ambulated independently from [facility] accompanied by his mother and was admitted to outpatient wound care for physician visit. Placed in contact isolation precautions per hospital policy. Dressing removed, wound cleansed. Patient assessed for changes in conditions, medications and medical history. 1140 - Dr. Osorio at bedside accompanied by RN. Wound assessed, time out performed by MD/RN. Wound debrided as detailed in the physician progress/procedure note. Plan of care discussed with patient. Dressings placed per MD orders. Patient instructed on the signs and symptoms of infection and to call the Wound Center if any occur or to go to the ED if we are closed: Increased pain in wound Increase in drainage from the wound Redness in the skin surrounding the wound Bleeding from the wound Temperature of 101 or greater Patient instructed that the weight of their body puts a large amount of pressure on their wounds. This pressure keeps the new tissue from growing and inhibits new blood vessels from forming. Explained that, if they continue to bear weight on a body part that has a wound, the time it takes to heal the wound increases, the wound may get worse or the wound may not heal at all. Patient verbalized understanding of all discharge instructions and plan of care and ambulated independently out to [facility] accompanied by his mother and is in stable condition with no sign or symptom of distress at time of discharge.
== END 2018-09-07 12:21 | disposition home or self-care (01) ==
LOC: WOUND CARE 10:16
PROVIDERS: ATTEND Surgery
DX: T81.89XD Other complications of procedures, not elsewhere classified, subsequent encounter (principal); L97.812 Non-pressure chronic ulcer of other part of right lower leg with fat layer exposed; L98.492 Non-pressure chronic ulcer of skin of other sites with fat layer exposed; L88 Pyoderma gangrenosum; K21.9 Gastro-esophageal reflux disease without esophagitis; I10 Essential (primary) hypertension; G89.29 Other chronic pain; F41.9 Anxiety disorder, unspecified; F32.9 Major depressive disorder, single episode, unspecified; F17.210 Nicotine dependence, cigarettes, uncomplicated; F11.20 Opioid dependence, uncomplicated; F15.10 Other stimulant abuse, uncomplicated; Z90.49 Acquired absence of other specified parts of digestive tract; Z89.511 Acquired absence of right leg below knee; Y83.8 Other surgical procedures as the cause of abnormal reaction of the patient, or of later complication, without mention of misadventure at the time of the procedure
CPT/HCPCS: 17250; 97597; 97598; A6223; A6021; A6206; A6212; A6243

== ENCOUNTER 2018-09-21 10:33 | Day surgery (SDC) | payer MEDICARE, MEDICAID ==
--- NOTE | 2018-09-21 16:31 | NUR ---
Patient arrived safely into [facility] accompanied by mother. Patient admitted to outpatient wound care for physician visit. Dressing removed, wound cleansed and lidocaine applied per order. Patient assessed for changes in conditions, medications and medical history. 0940-Dr. Osorio at bedside accompanied by RN. Wound assessed, time out performed by MD/RN. Wound debrided as detailed in the physician progress/procedure note. Plan of care discussed with patient. Dressings placed per MD orders. Patient instructed on the signs and symptoms of infection and to call the Wound Center if any occur or to go to the ED if we are closed: Increased pain in wound Increase in drainage from the wound Redness in the skin surrounding the wound Bleeding from the wound Temperature of 101 or greater Patient instructed that the weight of their body puts a large amount of pressure on their wounds. This pressure keeps the new tissue from growing and inhibits new blood vessels from forming. Explained that, if they continue to bear weight on a body part that has a wound, the time it takes to heal the wound increases, the wound may get worse or the wound may not heal at all. Patient verbalized understanding of all discharge instructions and plan of care and ambulated independently out to [facility] in stable condition with no sign or symptom of distress at time of discharge. Addendum: 09/21/18 at 1633 by Sarah Carlson RN Amended: Links added.
[2018-10-26] MEDS ORDERED: PALI234D IM (10:09)
[2018-10-26] MEDS ORDERED: BUPR-84 PO (10:09)
[2018-10-26] MEDS ORDERED: ONDA8TAB6 PO (10:09)
[2018-10-26] MEDS ORDERED: PER10325T PO (10:09)
[2018-10-26] MEDS ORDERED: PALI9TAB PO (10:09)
== END 2018-09-21 13:10 | disposition home or self-care (01) ==
LOC: WOUND CARE 10:33
PROVIDERS: ATTEND Surgery
DX: T81.89XD Other complications of procedures, not elsewhere classified, subsequent encounter (principal); L97.812 Non-pressure chronic ulcer of other part of right lower leg with fat layer exposed; L98.492 Non-pressure chronic ulcer of skin of other sites with fat layer exposed; L88 Pyoderma gangrenosum; K21.9 Gastro-esophageal reflux disease without esophagitis; I10 Essential (primary) hypertension; G89.29 Other chronic pain; Y83.8 Other surgical procedures as the cause of abnormal reaction of the patient, or of later complication, without mention of misadventure at the time of the procedure; F41.9 Anxiety disorder, unspecified; F32.9 Major depressive disorder, single episode, unspecified; F17.210 Nicotine dependence, cigarettes, uncomplicated; F11.20 Opioid dependence, uncomplicated; F15.10 Other stimulant abuse, uncomplicated; Z90.49 Acquired absence of other specified parts of digestive tract; Z89.511 Acquired absence of right leg below knee
CPT/HCPCS: 15271; 87070; 87075; 87077; 87102; 87186; Q4172; A6021; A6206; A6212; A6213; C5271

== ENCOUNTER 2018-09-28 10:40 | Day surgery (SDC) | payer MEDICARE, MEDICAID ==
[2018-09-28] MEDS ORDERED: LIDOcaine 2% 5ml jelly MM ONE (13:00)
--- NOTE | 2018-09-28 13:02 | NUR ---
Patient arrived safely into [facility] accompanied by mother. Patient admitted to outpatient wound care for physician visit. Dressing removed, wound cleansed and lidocaine applied per order. Patient assessed for changes in conditions, medications and medical history. 0940-Dr. Osorio at bedside accompanied by RN. Wound assessed, time out performed by MD/RN. Wound debrided as detailed in the physician progress/procedure note. Plan of care discussed with patient. Dressings placed per MD orders. Patient instructed on the signs and symptoms of infection and to call the Wound Center if any occur or to go to the ED if we are closed: Increased pain in wound Increase in drainage from the wound Redness in the skin surrounding the wound Bleeding from the wound Temperature of 101 or greater Patient instructed that the weight of their body puts a large amount of pressure on their wounds. This pressure keeps the new tissue from growing and inhibits new blood vessels from forming. Explained that, if they continue to bear weight on a body part that has a wound, the time it takes to heal the wound increases, the wound may get worse or the wound may not heal at all. Patient verbalized understanding of all discharge instructions and plan of care and ambulated independently out to [facility] in stable condition with no sign or symptom of distress at time of discharge. Addendum: 09/28/18 at 1304 by Sarah Carlson RN Amended: Links added.
== END 2018-09-28 12:08 | disposition home or self-care (01) ==
LOC: WOUND CARE 10:40
PROVIDERS: ATTEND Surgery
DX: T81.89XD Other complications of procedures, not elsewhere classified, subsequent encounter (principal); L97.812 Non-pressure chronic ulcer of other part of right lower leg with fat layer exposed; L98.492 Non-pressure chronic ulcer of skin of other sites with fat layer exposed; L88 Pyoderma gangrenosum; K21.9 Gastro-esophageal reflux disease without esophagitis; I10 Essential (primary) hypertension; G89.29 Other chronic pain; F41.9 Anxiety disorder, unspecified; F32.9 Major depressive disorder, single episode, unspecified; F17.210 Nicotine dependence, cigarettes, uncomplicated; F11.20 Opioid dependence, uncomplicated; F15.10 Other stimulant abuse, uncomplicated; Z90.49 Acquired absence of other specified parts of digestive tract; Z89.511 Acquired absence of right leg below knee; Y83.8 Other surgical procedures as the cause of abnormal reaction of the patient, or of later complication, without mention of misadventure at the time of the procedure
CPT/HCPCS: 17250; 97597; A6021; A6206

== ENCOUNTER 2018-10-12 10:22 | Outpatient (CLI) | payer MEDICARE, MEDICAID ==
[2018-10-12] MEDS ORDERED: LIDOcaine/PRILOcaine 5gm cream TP ONE (11:41)
--- NOTE | 2018-10-12 14:04 | NUR ---
Patient ambulated independently from [facility] and was admitted to outpatient wound care for physician visit. Dressing removed, wound cleansed. Patient assessed for changes in conditions, medications and medical history. Dr. Osorio at bedside accompanied by RN. Wound assessed and no debridement was done. Plan of care discussed with patient. Dressings placed per MD orders. Patient instructed on the signs and symptoms of infection and to call the Wound Center if any occur or to go to the ED if we are closed: Increased pain in wound Increase in drainage from the wound Redness in the skin surrounding the wound Bleeding from the wound Temperature of 101 or greater Patient instructed that the weight of their body puts a large amount of pressure on their wounds. This pressure keeps the new tissue from growing and inhibits new blood vessels from forming. Explained that, if they continue to bear weight on a body part that has a wound, the time it takes to heal the wound increases, the wound may get worse or the wound may not heal at all. Patient verbalized understanding of all discharge instructions and plan of care and ambulated independently out to [facility] in stable condition with no sign or symptom of distress at time of discharge. Addendum: 10/12/18 at 1406 by Sarah Carlson RN Amended: Links added.
== END 2018-10-12 12:40 | disposition home or self-care (01) ==
LOC: WOUND CARE 10:22 → EDSTATUS 10:30 → WOUND CARE 12:40
PROVIDERS: ATTEND Surgery
DX: T81.89XD Other complications of procedures, not elsewhere classified, subsequent encounter (principal); L97.812 Non-pressure chronic ulcer of other part of right lower leg with fat layer exposed; L98.492 Non-pressure chronic ulcer of skin of other sites with fat layer exposed; L88 Pyoderma gangrenosum; K21.9 Gastro-esophageal reflux disease without esophagitis; I10 Essential (primary) hypertension; G89.29 Other chronic pain; F41.9 Anxiety disorder, unspecified; F32.9 Major depressive disorder, single episode, unspecified; F17.210 Nicotine dependence, cigarettes, uncomplicated; F11.20 Opioid dependence, uncomplicated; F15.10 Other stimulant abuse, uncomplicated; Z90.49 Acquired absence of other specified parts of digestive tract; Z89.511 Acquired absence of right leg below knee; Y83.8 Other surgical procedures as the cause of abnormal reaction of the patient, or of later complication, without mention of misadventure at the time of the procedure
CPT/HCPCS: A6021; A6206; A6212; G0463

== ENCOUNTER 2018-10-31 05:55 | Inpatient (IN) | payer MEDICARE, MEDICAID ==
[2018-10-26 11:24] LABS: BASOPHILS % (AUTO) 0.1 % (0-1); EOSINOPHILS # (AUTO) 0.2 X10'3 (0-0.9); EOSINOPHILS % (AUTO) 4.1 % (0-6); LYMPHOCYTES # (AUTO) 1.3 X10'3 (1.1-4.8); LYMPHOCYTES % (AUTO) 22.7 % (21-51); MEAN CORPUSCULAR HEMOGLOBIN 30.5 PG (27.0-31.0); MEAN CORPUSCULAR HGB CONC 33.8 % (33.0-36.5); MEAN CORPUSCULAR VOLUME 90.3 FL (78-98); MONOCYTES # (AUTO) 0.3 X10'3 (0-0.9); MONOCYTES % (AUTO) 5.4 % (2-12); NEUTROPHILS % (AUTO) 67.7 % (42-75); PRE OP HEMATOCRIT 29.7 % (42.0-52.0); PRE OP PLATELET COUNT 163 X10'3 (140-440); RED BLOOD COUNT 3.29 X10'6 (4.70-6.10); RED CELL DISTRIBUTION WIDTH 14.4 % (11.5-14.5)
[2018-10-26 11:28] LABS: CLARITY,URINE CLEAR (Clear); COLOR,URINE YELLOW (Yellow); GLUCOSE, URINE NEGATIVE (Neg); KETONES,URINE NEGATIVE (Neg); LEUKOCYTE ESTERASE ,URINE NEGATIVE (Neg); NITRITES, URINE NEGATIVE (Neg); OCCULT BLOOD,URINE NEGATIVE (Neg); PROTEIN,URINE NEGATIVE (Neg); UROBILINOGEN,URINE 0.2 E.U/dL (0.2-1.0)
[2018-10-26 11:29] LABS: UA COLLECTION TYPE CLN CATCH MIDSTREAM
[2018-10-26 11:34] LABS: ALBUMIN 3.3 G/DL (3.4-5.0); ALBUMIN/GLOBULIN RATIO 0.8 (1.1-1.5); ALKALINE PHOSPHATASE 83 IU/L (46-116); BLOOD UREA NITROGEN 14 MG/DL (7-18); BUN/CREATININE RATIO 8.7 (5.4-32.0); CALCIUM 8.6 MG/DL (8.5-10.1); CHLORIDE 109 MMOL/L (99-107); CREATININE 1.61 MG/DL (0.60-1.10); PRE OP ALT 27 U/L (30-65); PRE OP ANION GAP 16 (8-16); PRE OP AST 25 U/L (10-37); PRE OP BILIRUB, TOTAL 0.3 MG/DL (0.0-1.0); PRE OP GLUCOSE 101 MG/DL (70-104); PRE OP POTASSIUM 4.2 MMOL/L (3.4-5.1); PRE OP SODIUM 143 MMOL/L (135-145); TOTAL CARBON DIOXIDE 17.7 MMOL/L (24-32); TOTAL PROTEIN 7.3 G/DL (6.4-8.2); eGFR 46 ML/MIN
[~2018-10-31] VITALS: Ht 198.1 cm; Wt 104.6 kg
[2018-10-31] VITALS (30 sets, daily range): BP systolic 95–121; BP diastolic 52–79
[~2018-10-31 05:55] MED LIST changes: +BUPR-84 PO; -HYDR-3964 PO; -HYDR2TAB7 PO; -ONDA8TAB13 PO; +ONDA8TAB6 PO; -OXYC-658 PO; +PALI234D IM; +PALI9TAB PO; +PER10325T PO; -PHE12.5T PO; -SUCR1TAB34 PO; +cefazolin/dext.iso 2gm/100 ML IV ONE; +famotidine 20mg tablet PO ONE; +ringers solution, lacted 1,000 ML IV SCH
[2018-10-31] MEDS ORDERED: ondansetron/PF 4mg/2ml inj ONE ×2 (06:36→07:59)
[2018-10-31] MEDS ORDERED: epiNEPHrine 1 mg/ml inj ONE (06:44)
[2018-10-31] MEDS ORDERED: LIDOcaine 1% 30ml preserv. free vial ONE (06:44)
[2018-10-31] MEDS ORDERED: mineral oil 10ml sterile, topical TP ONE (06:44)
[2018-10-31] MEDS ORDERED: proMETHazine 25mg tablet PO ONE (08:05)
[2018-10-31] MEDS ORDERED: famotidine/PF 10 mg/ml inj IV ONE (08:10)
[2018-10-31] MEDS ORDERED: fentaNYL/PF 50MCG/1 ML 2ML syringe ONE ×2 (08:17→09:07)
[2018-10-31] MEDS ORDERED: midazolam 2 mg/2 ml injection ONE (08:17)
[2018-10-31] MEDS ORDERED: propofol inj 20 ML IV ONE (08:18)
[2018-10-31] MEDS ORDERED: morphine 4 MG/ML inj SYRINge IV PRN ×2 (08:25)
[2018-10-31] MEDS ORDERED: ringers solution, lacted 1,000 ML IV SCH (08:25)
[2018-10-31] MEDS ORDERED: fentaNYL/PF 50MCG/1 ML 2ML syringe IV PRN ×2 (08:25)
[2018-10-31] MEDS ORDERED: labetalol 20mg/4ml (5mg/ml) syringe IV PRN (08:25)
[2018-10-31] MEDS ORDERED: ondansetron/PF 4mg/2ml inj IV PRN ×2 (08:25→12:55)
[2018-10-31] MEDS ORDERED: hydrALAZINE 20mg/ml inj. IV PRN (08:25)
[2018-10-31] MEDS ORDERED: sevoflurane 250ml liquid IH ONE (08:26)
[2018-10-31] MEDS ORDERED: metoclopramide 5 mg/ml inj ONE (08:50)
[2018-10-31] MEDS ORDERED: dexamethasone sod phosphate 4mg/ml inj. ONE (08:51)
--- NOTE | 2018-10-31 09:55 | NUR ---
Received from OR via ROBERT, accompanied by Anesthesiologist DR LUNDBERG and report given by Anesthesiologist. PT SITTING UP AWAKE W/FLAT AFFECT, DENIES PAIN, ABDOMEN W/4X4 DRGS'S W/CLEAR DRSG COVERING CDI, RIGHT THIGH W/KERLEX COVERING SKIN GRAFT, CDI. Addendum: 10/31/18 at 1025 by Hannah Cheung RN Amended: Links added.
[2018-10-31] MEDS: proCHLORperazine 10 MG/2 ml inj IV PRN ×2 (11:04→11:42)
--- NOTE | 2018-10-31 11:04 | NUR ---
PT NAUSEATED AND BELCHING, 5 MG COMPAZINE GIVEN. Addendum: 10/31/18 at 1106 by Hannah Cheung RN Amended: Links added.
--- NOTE | 2018-10-31 12:26 | NUR ---
REPORT TAKEN FROM [facility] IN RECOVERY. PATIENT ON HIS WAY TO [facility]
[2018-10-31] MEDS ORDERED: magnesium 2GM in 50ml NS 50 ML IV PRN (12:55)
[2018-10-31] MEDS ORDERED: potassium Cl 20 mEq SR tablet PO PRN ×2 (12:55)
[2018-10-31] MEDS ORDERED: potassium Cl 40MEQ/NS 500ml 500 ML IV PRN ×2 (12:55)
[2018-10-31] MEDS ORDERED: magnesium Cl slow-release 64mg tablet PO PRN (12:55)
[2018-10-31] MEDS ORDERED: magnesium 4gm in 100ml NS 100 ML IV PRN (12:55)
--- NOTE | 2018-10-31 12:55 | NUR ---
Report called to receiving nurse. Transferred via GURNEY, TRANSFERRED OVER ONTO BED IN ROOM 344A, RECEIVING RN AT BEDSIDE TO RECEIVE PT, 2 BAGS OF Belongings SENT W/PT, PT W/DRY HEAVES WHILE IN RECOVERY W/1 EMESIS OF LIQUID BROWN. PT GIVEN 4 MG MORPHINE FOR ABDOMINAL PAIN W/SOME RELIEF. Special Issues communicated to receiving nurse. YES. Addendum: 10/31/18 at 1308 by aHnnah Cheung RN Amended: Links added.
[2018-10-31] MEDS ORDERED: LORazepam 1 MG tablet PO PRN (13:30)
[2018-10-31] MEDS ORDERED: ondansetron 4mg rapidly disintigrating tab PO PRN (13:30)
[2018-10-31] MEDS ORDERED: diphenoxylate/atropine tablet (Lomotil) PO PRN (13:30)
[2018-10-31] MEDS ORDERED: calcium carbonate 500mg chew tablet PO PRN (13:30)
[2018-10-31] MEDS ORDERED: gabapentin 300mg capsule PO PRN (13:30)
[2018-10-31] MEDS: normal saline 1000ml 1,000 ML IV SCH ×2 (14:55→23:10)
--- NOTE | 2018-10-31 17:08 | NUR ---
16 fr f/c placed with 10cc ballon. pt tolerated well.
--- NOTE | 2018-10-31 17:26 | NUR ---
page sent to Dr. Clinton to inform of pt temp 103.1 no rx on order to give pt currently.
--- NOTE | 2018-10-31 18:35 | NUR ---
Problems reprioritized. Patient report given, questions answered & plan of care reviewed with Dennis QUICK.
[2018-10-31] MEDS: baclofen 10mg tablet PO SCH (19:57)
[2018-10-31] MEDS: mirtazapine 15mg tablet PO SCH (19:57)
[2018-10-31] MEDS ORDERED: pantoprazole 40mg Tablet.DR PO SCH (20:00)
[2018-10-31] MEDS: morphine 2 MG/ML inj. syringe IV PRN (22:29)
[2018-10-31] MEDS: pantoprazole 40 MG vial IV SCH (23:24)
[2018-11-01] VITALS: BP 128/68
[2018-11-01 04:00] VITALS: BP 106/64
[2018-11-01] MEDS: morphine 2 MG/ML inj. syringe IV PRN ×3 (04:43→20:36)
[2018-11-01 05:23] LABS: ALBUMIN 2.7 G/DL (3.4-5.0); ANION GAP 14 (8-16); BLOOD UREA NITROGEN 28 MG/DL (7-18); BUN/CREATININE RATIO 17.2 (5.4-32.0); CALCIUM 8.2 MG/DL (8.5-10.1); CHLORIDE 107 MMOL/L (99-107); CREATININE 1.63 MG/DL (0.60-1.10); GLUCOSE 141 MG/DL (70-104); POTASSIUM 4.1 MMOL/L (3.5-5.1); SODIUM 140 MMOL/L (135-145); eGFR 46 ML/MIN
[2018-11-01] MEDS: proCHLORperazine 10 MG/2 ml inj IV PRN ×3 (05:23→20:45)
--- NOTE | 2018-11-01 06:19 | NUR ---
Problems reprioritized. Patient report given, questions answered & plan of care reviewed with CARSON. Addendum: 11/01/18 at 0619 by Marcello Vaughn RN Amended: Links added.
--- NOTE | 2018-11-01 06:32 | NUR ---
Patient in room [facility]. I have received report from YNES Collins and had the opportunity to ask questions and assume patient care.
[2018-11-01 07:09] VITALS: BP 111/70
--- NOTE | 2018-11-01 07:27 | NUR ---
Called Dr Osorio regarding pt's NPO status to clarify if sips with meds are okay. Dr Osorio stated no sips with meds, change PO meds to IV if possible and keep ice chips to a minimum. I spoke with Jessica in pharmacy regarding changing PO meds to IV. Jessica stated that none of his scheduled PO meds are able to be switched to IV. I will administer pt's IV mediations as scheduled and continue to monitor.
--- NOTE | 2018-11-01 07:38 | NUR ---
Dr Clinton paged regarding pain medication
[2018-11-01] MEDS: baclofen 10mg tablet PO SCH ×3 (08:00→20:34)
[2018-11-01] MEDS: multivitamins, therapeutics tablet PO SCH (08:00)
[2018-11-01] MEDS: citalopram 20mg tablet PO SCH (08:00)
[2018-11-01] MEDS: K and/or MAG REPLACEMENT MC SCH (08:00)
[2018-11-01] MEDS: buPROPion SR 150mg tablet PO SCH (08:00)
[2018-11-01] MEDS: pantoprazole 40 MG vial IV SCH ×2 (08:24→20:34)
[2018-11-01 11:00] VITALS: BP 104/69
[2018-11-01] MEDS ORDERED: morphine 4 MG/ML inj SYRINge IV ONE (11:05)
[2018-11-01] MEDS: normal saline 1000ml 1,000 ML IV SCH ×2 (12:17→20:46)
[2018-11-01 13:37] LABS: BASOPHILS % (AUTO) 0.1 % (0-1); EOSINOPHILS # (AUTO) 0.1 X10'3 (0-0.9); EOSINOPHILS % (AUTO) 0.8 % (0-6); HEMATOCRIT 30.1 % (42.0-52.0); HEMOGLOBIN 10.1 g/dl (14.0-17.9); LYMPHOCYTES # (AUTO) 0.9 X10'3 (1.1-4.8); LYMPHOCYTES % (AUTO) 14.8 % (21-51); MEAN CORPUSCULAR HEMOGLOBIN 30.2 PG (27.0-31.0); MEAN CORPUSCULAR HGB CONC 33.6 g/dL (33.0-36.5); MEAN CORPUSCULAR VOLUME 89.8 FL (78-98); MEAN PLATELET VOLUME 8.1 FL (7.4-10.4); MONOCYTES # (AUTO) 0.5 X10'3 (0-0.9); MONOCYTES % (AUTO) 7.6 % (2-12); NEUTROPHILS # (AUTO) 4.8 X10'3 (1.8-7.7); NEUTROPHILS % (AUTO) 76.7 % (42-75); PLATELET COUNT 119 X10'3 (140-440); RED BLOOD COUNT 3.35 X10'6 (4.70-6.10); RED CELL DISTRIBUTION WIDTH 14.9 % (11.5-14.5); WHITE BLOOD COUNT 6.2 X10'3 (4.5-11.0)
[2018-11-01] MEDS: oxyCODONE/APAP 10/325mg tablet PO PRN (16:26)
--- NOTE | 2018-11-01 18:19 | NUR ---
Problems reprioritized. Patient report given, questions answered & plan of care reviewed with YNES Vivar.
--- NOTE | 2018-11-01 18:30 | NUR ---
Patient in room [facility]. I have received report from Lakeshia QUICK and had the opportunity to ask questions and assume patient care.
[2018-11-01 19:00] VITALS: BP 107/62
[2018-11-01] MEDS: mirtazapine 15mg tablet PO SCH (20:34)
[2018-11-02] VITALS: BP 110/70
[2018-11-02] MEDS: oxyCODONE/APAP 10/325mg tablet PO PRN ×4 (00:48→23:12)
[2018-11-02] MEDS: morphine 2 MG/ML inj. syringe IV PRN ×2 (04:21→19:22)
[2018-11-02] MEDS: normal saline 1000ml 1,000 ML IV SCH ×2 (04:28→15:55)
[2018-11-02 05:15] LABS: ALBUMIN 2.3 G/DL (3.4-5.0); ANION GAP 9 (8-16); BLOOD UREA NITROGEN 23 MG/DL (7-18); BUN/CREATININE RATIO 14.7 (5.4-32.0); CALCIUM 7.6 MG/DL (8.5-10.1); CHLORIDE 106 MMOL/L (99-107); CREATININE 1.56 MG/DL (0.60-1.10); GLUCOSE 106 MG/DL (70-104); MAGNESIUM 1.8 MG/DL (1.5-2.4); POTASSIUM 3.8 MMOL/L (3.5-5.1); SODIUM 138 MMOL/L (135-145); TOTAL CARBON DIOXIDE 22.9 MMOL/L (24-32); eGFR 48 ML/MIN
--- NOTE | 2018-11-02 06:30 | NUR ---
Patient in room [facility]. I have received report from YNES Yañez and had the opportunity to ask questions and assume patient care.
--- NOTE | 2018-11-02 06:45 | NUR ---
Problems reprioritized. Patient report given, questions answered & plan of care reviewed with Eamon Pearce.
--- NOTE | 2018-11-02 07:15 | NUR ---
Patient refused to walk last night. Addendum: 11/02/18 at 0717 by Ghazala Ken RN Amended: Links added.
[2018-11-02] MEDS: baclofen 10mg tablet PO SCH ×3 (07:50→21:34)
[2018-11-02] MEDS: buPROPion SR 150mg tablet PO SCH (07:50)
[2018-11-02] MEDS: pantoprazole 40 MG vial IV SCH (07:50)
[2018-11-02] MEDS: multivitamins, therapeutics tablet PO SCH (07:50)
[2018-11-02] MEDS: citalopram 20mg tablet PO SCH (07:50)
[2018-11-02] MEDS: K and/or MAG REPLACEMENT MC SCH (07:51)
[2018-11-02 08:00] VITALS: BP 108/65
--- NOTE | 2018-11-02 08:00 | NUR ---
pt anxious in bed treated for anxiety and pain PRN
--- NOTE | 2018-11-02 09:00 | NUR ---
YNES Keith, notified of pt's "+ Nasal MRSA Swab" per lab.
[2018-11-02 09:28] LABS: BASOPHILS % (AUTO) 0.6 % (0-1); EOSINOPHILS # (AUTO) 0.1 X10'3 (0-0.9); EOSINOPHILS % (AUTO) 1.9 % (0-6); HEMATOCRIT 22.9 % (42.0-52.0); HEMOGLOBIN 7.8 g/dl (14.0-17.9); LYMPHOCYTES # (AUTO) 0.5 X10'3 (1.1-4.8); LYMPHOCYTES % (AUTO) 10.2 % (21-51); MEAN CORPUSCULAR HGB CONC 33.9 g/dL (33.0-36.5); MEAN CORPUSCULAR VOLUME 88.6 FL (78-98); MONOCYTES # (AUTO) 0.5 X10'3 (0-0.9); MONOCYTES % (AUTO) 8.6 % (2-12); NEUTROPHILS # (AUTO) 4.1 X10'3 (1.8-7.7); NEUTROPHILS % (AUTO) 78.7 % (42-75); PLATELET COUNT 113 X10'3 (140-440); RED BLOOD COUNT 2.58 X10'6 (4.70-6.10); RED CELL DISTRIBUTION WIDTH 14.6 % (11.5-14.5); WHITE BLOOD COUNT 5.2 X10'3 (4.5-11.0)
--- NOTE | 2018-11-02 11:26 | NUR ---
Problems reprioritized. Patient report given, questions answered & plan of care reviewed with YNES Kay.
--- NOTE | 2018-11-02 11:40 | NUR ---
Patient in room [facility]. I have received report from YNES Knutson and had the opportunity to ask questions and assume patient care.
[2018-11-02 11:48] VITALS: BP 100/63
--- NOTE | 2018-11-02 12:52 | NUR ---
Dr. Osorio stated pt to have a soft regular diet and if tolerates it he may be discharged this afternoon. Dr. Osorio will attempt to contact Dr. Clinton.
--- NOTE | 2018-11-02 18:20 | NUR ---
Problems reprioritized. Patient report given, questions answered & plan of care reviewed with YNES Dutton.
[2018-11-02 19:00] VITALS: BP 118/68
[2018-11-02] MEDS: proCHLORperazine 10 MG/2 ml inj IV PRN (19:22)
[2018-11-02] MEDS: pantoprazole 40mg Tablet.DR PO SCH (19:22)
[2018-11-02] MEDS: mirtazapine 15mg tablet PO SCH (21:34)
[2018-11-03] MEDS: normal saline 1000ml 1,000 ML IV SCH ×2 (00:20→10:53)
[2018-11-03 02:00] VITALS: BP 107/62
--- NOTE | 2018-11-03 03:00 | NUR ---
bladder scan for 700ml. Pt needed coaxing to use urinal.. voided 625ml tea colored urine Addendum: 11/03/18 at 0302 by Marija Woodward RN Amended: Links added.
[2018-11-03 05:52] LABS: BASOPHILS % (AUTO) 0.4 % (0-1); EOSINOPHILS # (AUTO) 0.1 X10'3 (0-0.9); EOSINOPHILS % (AUTO) 2.5 % (0-6); HEMOGLOBIN 7.4 g/dl (14.0-17.9); LYMPHOCYTES # (AUTO) 0.9 X10'3 (1.1-4.8); LYMPHOCYTES % (AUTO) 17.4 % (21-51); MEAN CORPUSCULAR HEMOGLOBIN 30.2 PG (27.0-31.0); MEAN CORPUSCULAR HGB CONC 33.8 g/dL (33.0-36.5); MEAN CORPUSCULAR VOLUME 89.4 FL (78-98); MEAN PLATELET VOLUME 8.3 FL (7.4-10.4); MONOCYTES # (AUTO) 0.4 X10'3 (0-0.9); MONOCYTES % (AUTO) 7.6 % (2-12); NEUTROPHILS # (AUTO) 3.8 X10'3 (1.8-7.7); NEUTROPHILS % (AUTO) 72.1 % (42-75); PLATELET COUNT 114 X10'3 (140-440); RED BLOOD COUNT 2.44 X10'6 (4.70-6.10); RED CELL DISTRIBUTION WIDTH 14.9 % (11.5-14.5); WHITE BLOOD COUNT 5.3 X10'3 (4.5-11.0)
[2018-11-03 05:59] LABS: HEMATOCRIT 21.8 % (42.0-52.0)
[2018-11-03 06:09] LABS: ALBUMIN 2.2 G/DL (3.4-5.0); ANION GAP 11 (8-16); BLOOD UREA NITROGEN 20 MG/DL (7-18); BUN/CREATININE RATIO 15.3 (5.4-32.0); CALCIUM 7.8 MG/DL (8.5-10.1); CHLORIDE 109 MMOL/L (99-107); CREATININE 1.31 MG/DL (0.60-1.10); GLUCOSE 115 MG/DL (70-104); MAGNESIUM 1.6 MG/DL (1.5-2.4); POTASSIUM 3.5 MMOL/L (3.5-5.1); SODIUM 142 MMOL/L (135-145); TOTAL CARBON DIOXIDE 21.8 MMOL/L (24-32); eGFR 59 ML/MIN
--- NOTE | 2018-11-03 06:10 | NUR ---
Problems reprioritized. Patient report given, questions answered & plan of care reviewed with Mona QUICK. Addendum: 11/03/18 at 0637 by Marija Woodward RN Amended: Links added.
[2018-11-03 07:00] VITALS: BP 119/65
[2018-11-03] MEDS: K and/or MAG REPLACEMENT MC SCH (07:09)
[2018-11-03] MEDS: multivitamins, therapeutics tablet PO SCH (07:54)
[2018-11-03] MEDS: pantoprazole 40mg Tablet.DR PO SCH (07:54)
[2018-11-03] MEDS: citalopram 20mg tablet PO SCH (07:54)
[2018-11-03] MEDS: buPROPion SR 150mg tablet PO SCH (07:54)
[2018-11-03] MEDS: baclofen 10mg tablet PO SCH ×2 (07:54→13:15)
[2018-11-03] MEDS: oxyCODONE/APAP 10/325mg tablet PO PRN ×2 (07:57→13:15)
[2018-11-14] MEDS ORDERED: PALIPERIDONE 3 MG TAB.ER.24 PO SCH (08:00)
[2018-11-20] MEDS ORDERED: paliperidone palmitate inj 234 MG/1.5 ML SYRINGE IM SCH (09:00)
== END 2018-11-03 15:30 | disposition home health service (06) | DRG 356 ==
LOC: PAS 05:55 → SUR 3N 13:16
PROVIDERS: ADMIT Surgery; ATTEND Hospitalist
PROC: 0HBHXZZ Excision of Right Upper Leg Skin, External Approach (ICD-10-PCS; 2018-10-31)
PROC: 0HR7X74 Replacement of Abdomen Skin with Autologous Tissue Substitute, Partial Thickness, External Approach (ICD-10-PCS; principal; 2018-10-31 08:31)
DX: K91.89 Other postprocedural complications and disorders of digestive system (principal); N17.0 Acute kidney failure with tubular necrosis; K56.7 Ileus, unspecified; T81.89XA Other complications of procedures, not elsewhere classified, initial encounter; F31.9 Bipolar disorder, unspecified; I12.9 Hypertensive chronic kidney disease with stage 1 through stage 4 chronic kidney disease, or unspecified chronic kidney disease; E11.22 Type 2 diabetes mellitus with diabetic chronic kidney disease; D64.9 Anemia, unspecified; N18.9 Chronic kidney disease, unspecified; E78.5 Hyperlipidemia, unspecified; K21.9 Gastro-esophageal reflux disease without esophagitis; G89.29 Other chronic pain; F41.9 Anxiety disorder, unspecified; G57.91 Unspecified mononeuropathy of right lower limb; Z90.49 Acquired absence of other specified parts of digestive tract; Z88.1 Allergy status to other antibiotic agents; Z88.0 Allergy status to penicillin; Z91.018 Allergy to other foods; Z79.899 Other long term (current) drug therapy
CPT/HCPCS: 36415; 74021; 80048; 80053; 81003; 82948; 83735; 85025; 87070; 87075; 87077; 87186; 93005; A6223; A6258; A6446; A6449; A6454; A7000; C9113; G0378; J0171; J0690; J0780; J1100; J2250; J2270; J2405; J2704; J2765; J3010; J3475; J3490; J7030; J7120; Q0169

== ENCOUNTER 2018-11-07 10:29 | Outpatient (CLI) | payer MEDICARE, MEDICAID ==
[~2018-11-07 10:29] MED LIST changes: -cefazolin/dext.iso 2gm/100 ML IV ONE; -famotidine 20mg tablet PO ONE; -ringers solution, lacted 1,000 ML IV SCH
--- NOTE | 2018-11-07 12:29 | NUR ---
Patient ambulated independently from [facility] accompanied by his mother and was admitted to outpatient wound care for physician visit with Eitan Osorio MD. Dressing removed, wound cleansed; xeroform left over harvest site on right thigh. Patient assessed for changes in conditions, medications and medical history. 1137 - Dr. Osorio at bedside accompanied by RN. Wound assessed, time out performed by MD/RN. Wound debrided as detailed in the physician progress/procedure note. Plan of care discussed with patient. Dressings placed per MD orders. Patient instructed on the signs and symptoms of infection and to call the Wound Center if any occur or to go to the ED if we are closed: Increased pain in wound Increase in drainage from the wound Redness in the skin surrounding the wound Bleeding from the wound Temperature of 101 or greater Patient instructed that the weight of their body puts a large amount of pressure on their wounds. This pressure keeps the new tissue from growing and inhibits new blood vessels from forming. Explained that, if they continue to bear weight on a body part that has a wound, the time it takes to heal the wound increases, the wound may get worse or the wound may not heal at all. Patient verbalized understanding of all discharge instructions and plan of care and ambulated independently out to [facility] in stable condition with no sign or symptom of distress at time of discharge. Addendum: 11/07/18 at 1231 by Nhung Mariee RN Placed in contact isolation precautions per hospital policy.
== END 2018-11-07 12:01 | disposition home or self-care (01) ==
LOC: WOUND CARE 10:29 → EDSTATUS 10:30 → WOUND CARE 12:01
PROVIDERS: ATTEND Surgery
DX: T81.89XD Other complications of procedures, not elsewhere classified, subsequent encounter (principal); L97.812 Non-pressure chronic ulcer of other part of right lower leg with fat layer exposed; L98.492 Non-pressure chronic ulcer of skin of other sites with fat layer exposed; L88 Pyoderma gangrenosum; K21.9 Gastro-esophageal reflux disease without esophagitis; I10 Essential (primary) hypertension; G89.29 Other chronic pain; F41.9 Anxiety disorder, unspecified; F32.9 Major depressive disorder, single episode, unspecified; F17.210 Nicotine dependence, cigarettes, uncomplicated; F11.20 Opioid dependence, uncomplicated; F15.10 Other stimulant abuse, uncomplicated; Z90.49 Acquired absence of other specified parts of digestive tract; Z89.511 Acquired absence of right leg below knee; Y83.8 Other surgical procedures as the cause of abnormal reaction of the patient, or of later complication, without mention of misadventure at the time of the procedure
CPT/HCPCS: A6223; G0463; A6243; A6446

== ENCOUNTER 2018-11-20 09:42 | Outpatient (CLI) | payer MEDICARE, MEDICAID ==
--- NOTE | 2018-11-20 12:55 | NUR ---
Patient ambulated independently from [facility] and was admitted to outpatient wound care for physician visit with Eitan Osorio MD. Dressing removed, wound cleansed and lidocaine applied per order. Patient assessed for changes in conditions, medications and medical history. Dr. Osorio at bedside accompanied by RN. Wound assessed and no debridement was done. Plan of care discussed with patient. Dressings placed per MD orders. Patient instructed on the signs and symptoms of infection and to call the Wound Center if any occur or to go to the ED if we are closed: Increased pain in wound Increase in drainage from the wound Redness in the skin surrounding the wound Bleeding from the wound Temperature of 101 or greater Patient instructed that the weight of their body puts a large amount of pressure on their wounds. This pressure keeps the new tissue from growing and inhibits new blood vessels from forming. Explained that, if they continue to bear weight on a body part that has a wound, the time it takes to heal the wound increases, the wound may get worse or the wound may not heal at all. Patient verbalized understanding of all discharge instructions and plan of care and ambulated independently out to [facility] in stable condition with no sign or symptom of distress at time of discharge. Addendum: 11/20/18 at 1257 by Sarah Carlson RN Amended: Links added.
== END 2018-11-20 12:01 | disposition home or self-care (01) ==
LOC: WOUND CARE 09:42
PROVIDERS: ATTEND Surgery
DX: T81.89XD Other complications of procedures, not elsewhere classified, subsequent encounter (principal); L97.812 Non-pressure chronic ulcer of other part of right lower leg with fat layer exposed; L98.492 Non-pressure chronic ulcer of skin of other sites with fat layer exposed; L88 Pyoderma gangrenosum; K21.9 Gastro-esophageal reflux disease without esophagitis; I10 Essential (primary) hypertension; G89.29 Other chronic pain; F41.9 Anxiety disorder, unspecified; F32.9 Major depressive disorder, single episode, unspecified; F17.210 Nicotine dependence, cigarettes, uncomplicated; F11.20 Opioid dependence, uncomplicated; F15.10 Other stimulant abuse, uncomplicated; Z90.49 Acquired absence of other specified parts of digestive tract; Z89.511 Acquired absence of right leg below knee; Y83.8 Other surgical procedures as the cause of abnormal reaction of the patient, or of later complication, without mention of misadventure at the time of the procedure
CPT/HCPCS: A6222; G0463; A6021; A6243

== ENCOUNTER 2018-11-27 10:55 | Day surgery (SDC) | payer MEDICARE, MEDICAID ==
--- NOTE | 2018-11-27 13:00 | NUR ---
Patient ambulated independently from [facility] and was admitted to outpatient wound care for physician visit with Eitan Osorio MD. Placed in contact isolation precautions per hospital policy. Dressing removed, wound cleansed. Patient assessed for changes in conditions, medications and medical history. 1230 - Dr. Osorio at bedside accompanied by RN. Wound assessed, time out performed by MD/RN. Wound debrided as detailed in the physician progress/procedure note. Plan of care discussed with patient. Dressings placed per MD orders. Patient instructed on the signs and symptoms of infection and to call the Wound Center if any occur or to go to the ED if we are closed: Increased pain in wound Increase in drainage from the wound Redness in the skin surrounding the wound Bleeding from the wound Temperature of 101 or greater Patient instructed that the weight of their body puts a large amount of pressure on their wounds. This pressure keeps the new tissue from growing and inhibits new blood vessels from forming. Explained that, if they continue to bear weight on a body part that has a wound, the time it takes to heal the wound increases, the wound may get worse or the wound may not heal at all. Patient verbalized understanding of all discharge instructions and plan of care and ambulated independently out to [facility] in stable condition with no sign or symptom of distress at time of discharge.
== END 2018-11-27 12:56 | disposition home or self-care (01) ==
LOC: WOUND CARE 10:55
PROVIDERS: ATTEND Surgery
DX: T81.89XD Other complications of procedures, not elsewhere classified, subsequent encounter (principal); L97.812 Non-pressure chronic ulcer of other part of right lower leg with fat layer exposed; L98.492 Non-pressure chronic ulcer of skin of other sites with fat layer exposed; L88 Pyoderma gangrenosum; K21.9 Gastro-esophageal reflux disease without esophagitis; I10 Essential (primary) hypertension; G89.29 Other chronic pain; F41.9 Anxiety disorder, unspecified; F32.9 Major depressive disorder, single episode, unspecified; F17.210 Nicotine dependence, cigarettes, uncomplicated; F11.20 Opioid dependence, uncomplicated; F15.10 Other stimulant abuse, uncomplicated; Z90.49 Acquired absence of other specified parts of digestive tract; Z89.511 Acquired absence of right leg below knee; Y83.8 Other surgical procedures as the cause of abnormal reaction of the patient, or of later complication, without mention of misadventure at the time of the procedure
CPT/HCPCS: 97597; A6223; 17250; A6021; A6243; A6446

== ENCOUNTER 2018-12-04 10:36 | Day surgery (SDC) | payer MEDICARE, MEDICAID ==
[2018-12-04] MEDS ORDERED: LIDOcaine/PRILOcaine 5gm cream TP ONE (11:49)
--- NOTE | 2018-12-04 15:31 | NUR ---
Patient ambulated independently from [facility] and was admitted to outpatient wound care for physician visit with Eitan Osorio MD. Dressings removed and wounds cleansed. Patient assessed for changes in conditions, medications and medical history. Dr. Osorio at bedside accompanied by RN. Wounds assessed and no debridement was done. Plan of care discussed with patient. Dressings placed per MD orders. Patient instructed on the signs and symptoms of infection and to call the Wound Center if any occur or to go to the ED if we are closed: Increased pain in wound Increase in drainage from the wound Redness in the skin surrounding the wound Bleeding from the wound Temperature of 101 or greater Patient instructed that the weight of their body puts a large amount of pressure on their wounds. This pressure keeps the new tissue from growing and inhibits new blood vessels from forming. Explained that, if they continue to bear weight on a body part that has a wound, the time it takes to heal the wound increases, the wound may get worse or the wound may not heal at all. Patient verbalized understanding of all discharge instructions and plan of care and ambulated independently out to [facility] in stable condition with no sign or symptom of distress at time of discharge. Addendum: 12/04/18 at 1534 by Sarah Carlson RN Amended: Links added.
== END 2018-12-04 12:37 | disposition home or self-care (01) ==
LOC: WOUND CARE 10:36
PROVIDERS: ATTEND Surgery
DX: T81.89XD Other complications of procedures, not elsewhere classified, subsequent encounter (principal); L97.812 Non-pressure chronic ulcer of other part of right lower leg with fat layer exposed; L98.492 Non-pressure chronic ulcer of skin of other sites with fat layer exposed; L88 Pyoderma gangrenosum; K21.9 Gastro-esophageal reflux disease without esophagitis; I10 Essential (primary) hypertension; G89.29 Other chronic pain; F41.9 Anxiety disorder, unspecified; F32.9 Major depressive disorder, single episode, unspecified; F17.210 Nicotine dependence, cigarettes, uncomplicated; F11.20 Opioid dependence, uncomplicated; F15.10 Other stimulant abuse, uncomplicated; Z90.49 Acquired absence of other specified parts of digestive tract; Z89.511 Acquired absence of right leg below knee; Y83.8 Other surgical procedures as the cause of abnormal reaction of the patient, or of later complication, without mention of misadventure at the time of the procedure
CPT/HCPCS: 97597; A6222; A6223; A6021; A6212; A6213; A6243; G0463

== ENCOUNTER 2018-12-11 11:20 | Day surgery (SDC) | payer MEDICARE, MEDICAID ==
[2018-12-11] MEDS ORDERED: LIDOcaine/PRILOcaine 5gm cream TP ONE (12:08)
[2018-12-11] MEDS ORDERED: hydrocortisone 1% cream 28gm TP ONE (12:51)
--- NOTE | 2018-12-11 13:58 | NUR ---
Patient ambulated independently from [facility] and was admitted to outpatient wound care for physician visit with Eitan Osorio MD. Dressing removed, wound cleansed and lidocaine applied per order. Patient assessed for changes in conditions, medications and medical history. Dr. Osorio at bedside accompanied by RN. Wound assessed, time out performed by MD/RN. Wound debrided as detailed in the physician progress/procedure note. Plan of care discussed with patient. Dressings placed per MD orders. Patient instructed on the signs and symptoms of infection and to call the Wound Center if any occur or to go to the ED if we are closed: Increased pain in wound Increase in drainage from the wound Redness in the skin surrounding the wound Bleeding from the wound Temperature of 101 or greater Patient instructed that the weight of their body puts a large amount of pressure on their wounds. This pressure keeps the new tissue from growing and inhibits new blood vessels from forming. Explained that, if they continue to bear weight on a body part that has a wound, the time it takes to heal the wound increases, the wound may get worse or the wound may not heal at all. Patient verbalized understanding of all discharge instructions and plan of care and ambulated independently out to [facility] in stable condition with no sign or symptom of distress at time of discharge. Addendum: 12/11/18 at 1359 by Sarah Carlson RN Amended: Links added.
== END 2018-12-11 13:06 | disposition home or self-care (01) ==
LOC: WOUND CARE 11:20
PROVIDERS: ATTEND Surgery
DX: T81.89XD Other complications of procedures, not elsewhere classified, subsequent encounter (principal); L97.812 Non-pressure chronic ulcer of other part of right lower leg with fat layer exposed; L98.492 Non-pressure chronic ulcer of skin of other sites with fat layer exposed; L88 Pyoderma gangrenosum; K21.9 Gastro-esophageal reflux disease without esophagitis; I10 Essential (primary) hypertension; G89.29 Other chronic pain; F41.9 Anxiety disorder, unspecified; F32.9 Major depressive disorder, single episode, unspecified; F17.210 Nicotine dependence, cigarettes, uncomplicated; F11.20 Opioid dependence, uncomplicated; F15.10 Other stimulant abuse, uncomplicated; Z90.49 Acquired absence of other specified parts of digestive tract; Z89.511 Acquired absence of right leg below knee; Y83.8 Other surgical procedures as the cause of abnormal reaction of the patient, or of later complication, without mention of misadventure at the time of the procedure
CPT/HCPCS: 17250; A6222; A6021; A6206; A6213; A6243; A6446

== ENCOUNTER 2018-12-20 10:04 | Day surgery (SDC) | payer MEDICARE, MEDICAID ==
[2018-12-20] MEDS ORDERED: LIDOcaine/PRILOcaine 5gm cream TP ONE (10:40)
[2018-12-20] MEDS ORDERED: hydrocortisone 1% cream 28gm TP ONE (10:59)
--- NOTE | 2018-12-20 13:17 | NUR ---
Patient ambulated independently from [facility] and was admitted to outpatient wound care for physician visit with Eitan Osorio MD. Dressings removed, wounds cleansed and Emla cream applied per order. Patient assessed for changes in conditions, medications and medical history. Dr. Osorio at bedside accompanied by RN. Wound assessed, time out performed by MD/RN. Wound debrided as detailed in the physician progress/procedure note. Plan of care discussed with patient. Dressings placed per MD orders. Patient instructed on the signs and symptoms of infection and to call the Wound Center if any occur or to go to the ED if we are closed: Increased pain in wound Increase in drainage from the wound Redness in the skin surrounding the wound Bleeding from the wound Temperature of 101 or greater Patient instructed that the weight of their body puts a large amount of pressure on their wounds. This pressure keeps the new tissue from growing and inhibits new blood vessels from forming. Explained that, if they continue to bear weight on a body part that has a wound, the time it takes to heal the wound increases, the wound may get worse or the wound may not heal at all. Patient verbalized understanding of all discharge instructions and plan of care and ambulated independently out to [facility] in stable condition with no sign or symptom of distress at time of discharge. Addendum: 12/20/18 at 1320 by Sarah Carlson RN Amended: Links added.
== END 2018-12-20 11:19 | disposition home or self-care (01) ==
LOC: WOUND CARE 10:04
PROVIDERS: ATTEND Surgery
DX: T81.89XD Other complications of procedures, not elsewhere classified, subsequent encounter (principal); L97.812 Non-pressure chronic ulcer of other part of right lower leg with fat layer exposed; L98.492 Non-pressure chronic ulcer of skin of other sites with fat layer exposed; L97.111 Non-pressure chronic ulcer of right thigh limited to breakdown of skin; L97.211 Non-pressure chronic ulcer of right calf limited to breakdown of skin; L88 Pyoderma gangrenosum; K21.9 Gastro-esophageal reflux disease without esophagitis; I10 Essential (primary) hypertension; G89.29 Other chronic pain; F41.9 Anxiety disorder, unspecified; F32.9 Major depressive disorder, single episode, unspecified; F17.210 Nicotine dependence, cigarettes, uncomplicated; F11.20 Opioid dependence, uncomplicated; F15.10 Other stimulant abuse, uncomplicated; Z90.49 Acquired absence of other specified parts of digestive tract; Z89.511 Acquired absence of right leg below knee; Y83.8 Other surgical procedures as the cause of abnormal reaction of the patient, or of later complication, without mention of misadventure at the time of the procedure
CPT/HCPCS: 97597; 97598; A6223; A6021; A6243; A6446

== ENCOUNTER 2018-12-27 10:05 | Day surgery (SDC) | payer MEDICARE, MEDICAID ==
[2018-12-27] MEDS ORDERED: hydrocortisone 1% cream 28gm TP ONE (12:23)
--- NOTE | 2018-12-27 13:00 | NUR ---
Patient ambulated independently from [facility] and was admitted to outpatient wound care for physician visit with Eitan Osorio MD. Placed in contact isolation precautions per hospital policy. Dressing removed, wound cleansed. Patient assessed for changes in conditions, medications and medical history. When patient removed his sweatshirt for blood pressure to be taken, he was wearing no shirt and MA and RN observed rash to bilateral arms, chest and face. Vital signs are within normal limits, no fever. Patient denies any illness, fever or cough. oilseed meat presser and MD are notified of rash. MD requested for Dr. Tinajero ID to be contacted to examine the patient. Dr. Tinajero is contacted by primary RN through page to ID RN Zafar Rivas. Dr. Tinajero came down promptly to examine the patient and stated the patient had folliculitis and not an infectious disease. Patient told Dr. Tinajero he had been vaccinated. Per ID RN's request for verification of vaccine status, patient's mother Inga is contacted to confirm vaccination status. Dot did not answer her phone but a message was left on her cell phone that her son had a rash and was checked out by ID and was deemed negative of an infectious process but that ID RN would like verification of patient's vaccination status and ID RN Bryan's name and phone number was given to Dot to contact. [phone] - Dr. Osorio at bedside accompanied by RN. Wound assessed, time out performed by MD/RN. Wound debrided as detailed in the physician progress/procedure note. Plan of care discussed with patient. Dressings placed per MD orders. Patient instructed on the signs and symptoms of infection and to call the Wound Center if any occur or to go to the ED if we are closed: Increased pain in wound Increase in drainage from the wound Redness in the skin surrounding the wound Bleeding from the wound Temperature of 101 or greater Patient instructed that the weight of their body puts a large amount of pressure on their wounds. This pressure keeps the new tissue from growing and inhibits new blood vessels from forming. Explained that, if they continue to bear weight on a body part that has a wound, the time it takes to heal the wound increases, the wound may get worse or the wound may not heal at all. Patient verbalized understanding of all discharge instructions, including new prescription called in to [facility] for him, and plan of care and ambulated independently out to [facility] in stable condition with no sign or symptom of distress at time of discharge.
[2018-12-27] MEDS ORDERED: DOXY100C43 PO (15:20)
== END 2018-12-27 12:36 | disposition home or self-care (01) ==
LOC: WOUND CARE 10:05
PROVIDERS: ATTEND Surgery
DX: T81.89XD Other complications of procedures, not elsewhere classified, subsequent encounter (principal); L98.492 Non-pressure chronic ulcer of skin of other sites with fat layer exposed; L97.812 Non-pressure chronic ulcer of other part of right lower leg with fat layer exposed; L97.211 Non-pressure chronic ulcer of right calf limited to breakdown of skin; L88 Pyoderma gangrenosum; K21.9 Gastro-esophageal reflux disease without esophagitis; I10 Essential (primary) hypertension; G89.29 Other chronic pain; F41.9 Anxiety disorder, unspecified; F32.9 Major depressive disorder, single episode, unspecified; F17.210 Nicotine dependence, cigarettes, uncomplicated; F11.20 Opioid dependence, uncomplicated; F15.10 Other stimulant abuse, uncomplicated; Z90.49 Acquired absence of other specified parts of digestive tract; Z89.511 Acquired absence of right leg below knee; Y83.8 Other surgical procedures as the cause of abnormal reaction of the patient, or of later complication, without mention of misadventure at the time of the procedure
CPT/HCPCS: 97597; 97598; A6021; A6212; A6213; A6446

== ENCOUNTER 2019-01-03 10:09 | Day surgery (SDC) | payer MEDICARE, MEDICAID ==
[~2019-01-03 10:09] MED LIST changes: +DOXY100C43 PO
[2019-01-03] MEDS ORDERED: LIDOcaine/PRILOcaine 5gm cream TP ONE (10:51)
[2019-01-03] MEDS ORDERED: hydrocortisone 1% cream 28gm TP ONE (11:45)
--- NOTE | 2019-01-03 13:22 | NUR ---
Patient ambulated independently from [facility] and was admitted to outpatient wound care for physician visit with Eitan Osorio MD. Dressing removed, wound cleansed and Emla cream applied per order. Patient assessed for changes in conditions, medications and medical history. Dr. Osorio at bedside accompanied by RN. Wound assessed, time out performed by MD/RN. Wound debrided as detailed in the physician progress/procedure note. Plan of care discussed with patient. Dressings placed per MD orders. Patient instructed on the signs and symptoms of infection and to call the Wound Center if any occur or to go to the ED if we are closed: Increased pain in wound Increase in drainage from the wound Redness in the skin surrounding the wound Bleeding from the wound Temperature of 101 or greater Patient instructed that the weight of their body puts a large amount of pressure on their wounds. This pressure keeps the new tissue from growing and inhibits new blood vessels from forming. Explained that, if they continue to bear weight on a body part that has a wound, the time it takes to heal the wound increases, the wound may get worse or the wound may not heal at all. Patient verbalized understanding of all discharge instructions and plan of care and ambulated independently out to [facility] in stable condition with no sign or symptom of distress at time of discharge. Addendum: 01/03/19 at 1323 by Sarah Carlson RN Amended: Links added.
== END 2019-01-03 11:50 | disposition home or self-care (01) ==
LOC: WOUND CARE 10:09
PROVIDERS: ATTEND Surgery
DX: T81.89XD Other complications of procedures, not elsewhere classified, subsequent encounter (principal); L98.492 Non-pressure chronic ulcer of skin of other sites with fat layer exposed; L97.812 Non-pressure chronic ulcer of other part of right lower leg with fat layer exposed; L97.211 Non-pressure chronic ulcer of right calf limited to breakdown of skin; L88 Pyoderma gangrenosum; K21.9 Gastro-esophageal reflux disease without esophagitis; I10 Essential (primary) hypertension; G89.29 Other chronic pain; F41.9 Anxiety disorder, unspecified; F32.9 Major depressive disorder, single episode, unspecified; F17.210 Nicotine dependence, cigarettes, uncomplicated; F11.20 Opioid dependence, uncomplicated; F15.10 Other stimulant abuse, uncomplicated; Z90.49 Acquired absence of other specified parts of digestive tract; Z89.511 Acquired absence of right leg below knee; Y83.8 Other surgical procedures as the cause of abnormal reaction of the patient, or of later complication, without mention of misadventure at the time of the procedure
CPT/HCPCS: 97597; A6223; A6021; A6243; A6446

== ENCOUNTER 2019-01-10 10:17 | Day surgery (SDC) | payer MEDICARE, MEDICAID ==
[2019-01-10] MEDS ORDERED: LIDOcaine/PRILOcaine 5gm cream TP ONE (11:05)
[2019-01-10] MEDS ORDERED: hydrocortisone 1% cream 28gm TP ONE (11:49)
[2019-01-10] MEDS ORDERED: HYDR28CR14 TP (12:41)
--- NOTE | 2019-01-10 12:42 | NUR ---
Patient ambulated independently from [facility] and was admitted to outpatient wound care for physician visit with Eitan Osorio MD. Placed in contact isolation precautions per hospital policy. Dressing removed, wound cleansed and Emla cream applied per order. Patient assessed for changes in conditions, medications and medical history. 1145 - Dr. Osorio at bedside accompanied by RN. Wound assessed, time out performed by MD/RN. Wound debrided as detailed in the physician progress/procedure note. Plan of care discussed with patient. Dressings placed per MD orders. Patient instructed on the signs and symptoms of infection and to call the Wound Center if any occur or to go to the ED if we are closed: Increased pain in wound Increase in drainage from the wound Redness in the skin surrounding the wound Bleeding from the wound Temperature of 101 or greater Patient instructed that the weight of their body puts a large amount of pressure on their wounds. This pressure keeps the new tissue from growing and inhibits new blood vessels from forming. Explained that, if they continue to bear weight on a body part that has a wound, the time it takes to heal the wound increases, the wound may get worse or the wound may not heal at all. Patient verbalized understanding of all discharge instructions and plan of care and ambulated independently out to [facility] in stable condition with no sign or symptom of distress at time of discharge.
== END 2019-01-10 12:07 | disposition home or self-care (01) ==
LOC: WOUND CARE 10:17
PROVIDERS: ATTEND Surgery
DX: T81.89XD Other complications of procedures, not elsewhere classified, subsequent encounter (principal); L98.492 Non-pressure chronic ulcer of skin of other sites with fat layer exposed; L97.812 Non-pressure chronic ulcer of other part of right lower leg with fat layer exposed; L97.211 Non-pressure chronic ulcer of right calf limited to breakdown of skin; L88 Pyoderma gangrenosum; K21.9 Gastro-esophageal reflux disease without esophagitis; I10 Essential (primary) hypertension; G89.29 Other chronic pain; F41.9 Anxiety disorder, unspecified; F17.210 Nicotine dependence, cigarettes, uncomplicated; F11.20 Opioid dependence, uncomplicated; F15.10 Other stimulant abuse, uncomplicated; Z90.49 Acquired absence of other specified parts of digestive tract; Z89.511 Acquired absence of right leg below knee; Y83.8 Other surgical procedures as the cause of abnormal reaction of the patient, or of later complication, without mention of misadventure at the time of the procedure
CPT/HCPCS: 97597; 97598; A6209; A6021; A6206; A6243; A6446

== ENCOUNTER 2019-01-17 10:20 | Outpatient (CLI) | payer MEDICARE, MEDICAID ==
[~2019-01-17 10:20] MED LIST changes: +HYDR28CR14 TP
[2019-01-17] MEDS ORDERED: LIDOcaine/PRILOcaine 5gm cream TP ONE (11:40)
[2019-01-17] MEDS ORDERED: hydrocortisone 1% cream 28gm TP ONE (12:02)
--- NOTE | 2019-01-17 12:26 | NUR ---
Patient ambulated independently from [facility] and was admitted to outpatient wound care for physician visit with Eitan Osorio MD. Placed in contact isolation precautions per hospital policy. Dressing removed, wound cleansed and Emla cream applied per order. Patient assessed for changes in conditions, medications and medical history. 1145 - Dr. Osorio at bedside accompanied by RN. Wound assessed by MD, orders written. Plan of care discussed with patient. Dressings placed per MD orders. Patient instructed on the signs and symptoms of infection and to call the Wound Center if any occur or to go to the ED if we are closed: Increased pain in wound Increase in drainage from the wound Redness in the skin surrounding the wound Bleeding from the wound Temperature of 101 or greater Patient instructed that the weight of their body puts a large amount of pressure on their wounds. This pressure keeps the new tissue from growing and inhibits new blood vessels from forming. Explained that, if they continue to bear weight on a body part that has a wound, the time it takes to heal the wound increases, the wound may get worse or the wound may not heal at all. Patient verbalized understanding of all discharge instructions and plan of care and ambulated independently out to [facility] in stable condition with no sign or symptom of distress at time of discharge.
== END 2019-01-17 12:07 | disposition home or self-care (01) ==
LOC: WOUND CARE 10:20 → EDSTATUS 10:30 → WOUND CARE 12:07
PROVIDERS: ATTEND Surgery
DX: T81.89XD Other complications of procedures, not elsewhere classified, subsequent encounter (principal); L98.492 Non-pressure chronic ulcer of skin of other sites with fat layer exposed; L97.812 Non-pressure chronic ulcer of other part of right lower leg with fat layer exposed; L97.211 Non-pressure chronic ulcer of right calf limited to breakdown of skin; L88 Pyoderma gangrenosum; K21.9 Gastro-esophageal reflux disease without esophagitis; I10 Essential (primary) hypertension; G89.29 Other chronic pain; F41.9 Anxiety disorder, unspecified; F17.210 Nicotine dependence, cigarettes, uncomplicated; F11.20 Opioid dependence, uncomplicated; F15.10 Other stimulant abuse, uncomplicated; Z90.49 Acquired absence of other specified parts of digestive tract; Z89.511 Acquired absence of right leg below knee; Y83.8 Other surgical procedures as the cause of abnormal reaction of the patient, or of later complication, without mention of misadventure at the time of the procedure
CPT/HCPCS: A6209; G0463; A6021; A6206; A6243; A6446

== ENCOUNTER 2019-01-31 10:20 | Day surgery (SDC) | payer MEDICARE, MEDICAID ==
[2019-01-31] MEDS ORDERED: LIDOcaine/PRILOcaine 5gm cream TP ONE ×2 (11:25)
[2019-01-31] MEDS ORDERED: hydrocortisone 1% cream 28gm TP ONE (12:00)
--- NOTE | 2019-01-31 12:41 | NUR ---
Patient ambulated independently from [facility] and was admitted to outpatient wound care for physician visit with Eitan Osorio MD. Dressing removed, wound cleansed and Emla cream applied per order. Patient assessed for changes in conditions, medications and medical history. Dr. Osorio at bedside accompanied by RN. Wound assessed, time out performed by MD/RN. Wound debrided as detailed in the physician progress/procedure note. Plan of care discussed with patient. Dressings placed per MD orders. Patient instructed on the signs and symptoms of infection and to call the Wound Center if any occur or to go to the ED if we are closed: Increased pain in wound Increase in drainage from the wound Redness in the skin surrounding the wound Bleeding from the wound Temperature of 101 or greater Patient instructed that the weight of their body puts a large amount of pressure on their wounds. This pressure keeps the new tissue from growing and inhibits new blood vessels from forming. Explained that, if they continue to bear weight on a body part that has a wound, the time it takes to heal the wound increases, the wound may get worse or the wound may not heal at all. Patient verbalized understanding of all discharge instructions and plan of care and ambulated independently out to [facility] in stable condition with no sign or symptom of distress at time of discharge. Addendum: 01/31/19 at 1245 by Sarah Carlson RN Amended: Links added.
== END 2019-01-31 12:19 | disposition home or self-care (01) ==
LOC: WOUND CARE 10:20
PROVIDERS: ATTEND Surgery
DX: T81.89XD Other complications of procedures, not elsewhere classified, subsequent encounter (principal); L98.492 Non-pressure chronic ulcer of skin of other sites with fat layer exposed; L97.812 Non-pressure chronic ulcer of other part of right lower leg with fat layer exposed; L97.211 Non-pressure chronic ulcer of right calf limited to breakdown of skin; L88 Pyoderma gangrenosum; K21.9 Gastro-esophageal reflux disease without esophagitis; I10 Essential (primary) hypertension; G89.29 Other chronic pain; F41.9 Anxiety disorder, unspecified; F17.210 Nicotine dependence, cigarettes, uncomplicated; F11.20 Opioid dependence, uncomplicated; F15.10 Other stimulant abuse, uncomplicated; Z90.49 Acquired absence of other specified parts of digestive tract; Z89.511 Acquired absence of right leg below knee; Y83.8 Other surgical procedures as the cause of abnormal reaction of the patient, or of later complication, without mention of misadventure at the time of the procedure
CPT/HCPCS: 97597; A6209; A6021; A6243; A6446

== ENCOUNTER 2019-02-07 10:10 | Day surgery (SDC) | payer MEDICARE, MEDICAID ==
[2019-02-07] MEDS ORDERED: LIDOcaine/PRILOcaine 5gm cream TP ONE (10:41)
[2019-02-07] MEDS ORDERED: hydrocortisone 1% cream 28gm TP ONE (11:11)
--- NOTE | 2019-02-07 11:45 | NUR ---
Patient ambulated independently from [facility] and was admitted to outpatient wound care for physician visit with Eitan Osorio MD. Dressings removed, wounds cleansed and Emla cream applied per order. Patient assessed for changes in conditions, medications and medical history. Dr. Osorio at bedside accompanied by RN. Wound assessed, time out performed by MD/RN. Wound debrided as detailed in the physician progress/procedure note. Plan of care discussed with patient. Dressings placed per MD orders. Patient instructed on the signs and symptoms of infection and to call the Wound Center if any occur or to go to the ED if we are closed: Increased pain in wound Increase in drainage from the wound Redness in the skin surrounding the wound Bleeding from the wound Temperature of 101 or greater Patient instructed that the weight of their body puts a large amount of pressure on their wounds. This pressure keeps the new tissue from growing and inhibits new blood vessels from forming. Explained that, if they continue to bear weight on a body part that has a wound, the time it takes to heal the wound increases, the wound may get worse or the wound may not heal at all. Patient verbalized understanding of all discharge instructions and plan of care and ambulated independently out to [facility] in stable condition with no sign or symptom of distress at time of discharge. Addendum: 02/07/19 at 1149 by Sarah Carlson RN Amended: Links added.
== END 2019-02-07 11:29 | disposition home or self-care (01) ==
LOC: WOUND CARE 10:10
PROVIDERS: ATTEND Surgery
DX: T81.89XD Other complications of procedures, not elsewhere classified, subsequent encounter (principal); L98.492 Non-pressure chronic ulcer of skin of other sites with fat layer exposed; L97.812 Non-pressure chronic ulcer of other part of right lower leg with fat layer exposed; L97.211 Non-pressure chronic ulcer of right calf limited to breakdown of skin; L88 Pyoderma gangrenosum; K21.9 Gastro-esophageal reflux disease without esophagitis; I10 Essential (primary) hypertension; G89.29 Other chronic pain; F41.9 Anxiety disorder, unspecified; F17.210 Nicotine dependence, cigarettes, uncomplicated; F11.20 Opioid dependence, uncomplicated; F15.10 Other stimulant abuse, uncomplicated; Z90.49 Acquired absence of other specified parts of digestive tract; Z89.511 Acquired absence of right leg below knee; Y83.8 Other surgical procedures as the cause of abnormal reaction of the patient, or of later complication, without mention of misadventure at the time of the procedure
CPT/HCPCS: 97597; 97598; A6021; A6206; A6243; A6446

== ENCOUNTER 2019-02-15 10:05 | Day surgery (SDC) | payer MEDICARE, MEDICAID ==
--- NOTE | 2019-02-15 14:37 | NUR ---
Patient ambulated independently from [facility] and was admitted to outpatient wound care for physician visit with Eitan Osorio MD. Dressing removed and wounds cleansed. Patient assessed for changes in conditions, medications and medical history. Dr. Osorio at bedside accompanied by RN. Wound assessed, time out performed by MD/RN. Wound debrided as detailed in the physician progress/procedure note. Cellutome graft to left thigh applied to abdomen. Plan of care discussed with patient. Dressings placed per MD orders. Patient instructed on the signs and symptoms of infection and to call the Wound Center if any occur or to go to the ED if we are closed: Increased pain in wound Increase in drainage from the wound Redness in the skin surrounding the wound Bleeding from the wound Temperature of 101 or greater Patient instructed that the weight of their body puts a large amount of pressure on their wounds. This pressure keeps the new tissue from growing and inhibits new blood vessels from forming. Explained that, if they continue to bear weight on a body part that has a wound, the time it takes to heal the wound increases, the wound may get worse or the wound may not heal at all. Patient verbalized understanding of all discharge instructions and plan of care and ambulated independently out to [facility] in stable condition with no sign or symptom of distress at time of discharge. Addendum: 02/15/19 at 1444 by Sarah Carlson RN Amended: Links added.
== END 2019-02-15 12:22 | disposition home or self-care (01) ==
LOC: WOUND CARE 10:05
PROVIDERS: ATTEND Surgery
DX: T81.89XD Other complications of procedures, not elsewhere classified, subsequent encounter (principal); L98.492 Non-pressure chronic ulcer of skin of other sites with fat layer exposed; L97.812 Non-pressure chronic ulcer of other part of right lower leg with fat layer exposed; L97.211 Non-pressure chronic ulcer of right calf limited to breakdown of skin; L88 Pyoderma gangrenosum; K21.9 Gastro-esophageal reflux disease without esophagitis; I10 Essential (primary) hypertension; G89.29 Other chronic pain; F41.9 Anxiety disorder, unspecified; F17.210 Nicotine dependence, cigarettes, uncomplicated; F11.20 Opioid dependence, uncomplicated; F15.10 Other stimulant abuse, uncomplicated; Z90.49 Acquired absence of other specified parts of digestive tract; Z89.511 Acquired absence of right leg below knee; Y83.8 Other surgical procedures as the cause of abnormal reaction of the patient, or of later complication, without mention of misadventure at the time of the procedure
CPT/HCPCS: 15110; A6222; 97597; A6021

== ENCOUNTER 2019-02-21 10:11 | Day surgery (SDC) | payer MEDICARE, MEDICAID ==
[2019-02-21] MEDS ORDERED: LIDOcaine/PRILOcaine 5gm cream TP ONE (11:03)
--- NOTE | 2019-02-21 15:02 | NUR ---
Patient ambulated independently from [facility] and was admitted to outpatient wound care for physician visit with Eitan Osorio MD. Dressing removed, wound cleansed and Emla cream applied per order. Patient assessed for changes in conditions, medications and medical history. Dr. Osorio at bedside accompanied by RN. Wound assessed and no debridement was done. Plan of care discussed with patient. Dressings placed per MD orders. Patient instructed on the signs and symptoms of infection and to call the Wound Center if any occur or to go to the ED if we are closed: Increased pain in wound Increase in drainage from the wound Redness in the skin surrounding the wound Bleeding from the wound Temperature of 101 or greater Patient instructed that the weight of their body puts a large amount of pressure on their wounds. This pressure keeps the new tissue from growing and inhibits new blood vessels from forming. Explained that, if they continue to bear weight on a body part that has a wound, the time it takes to heal the wound increases, the wound may get worse or the wound may not heal at all. Patient verbalized understanding of all discharge instructions and plan of care and ambulated independently out to [facility] in stable condition with no sign or symptom of distress at time of discharge. Addendum: 02/21/19 at 1504 by Sarah Carlson RN Amended: Links added.
== END 2019-02-21 11:55 | disposition home or self-care (01) ==
LOC: WOUND CARE 10:11
PROVIDERS: ATTEND Surgery
DX: T81.89XD Other complications of procedures, not elsewhere classified, subsequent encounter (principal); L98.492 Non-pressure chronic ulcer of skin of other sites with fat layer exposed; L97.812 Non-pressure chronic ulcer of other part of right lower leg with fat layer exposed; L97.211 Non-pressure chronic ulcer of right calf limited to breakdown of skin; L88 Pyoderma gangrenosum; K21.9 Gastro-esophageal reflux disease without esophagitis; I10 Essential (primary) hypertension; G89.29 Other chronic pain; F41.9 Anxiety disorder, unspecified; F17.210 Nicotine dependence, cigarettes, uncomplicated; F11.20 Opioid dependence, uncomplicated; F15.10 Other stimulant abuse, uncomplicated; Z90.49 Acquired absence of other specified parts of digestive tract; Z89.511 Acquired absence of right leg below knee; Y83.8 Other surgical procedures as the cause of abnormal reaction of the patient, or of later complication, without mention of misadventure at the time of the procedure
CPT/HCPCS: A6209; A6222; G0463; A6021; A6206

== ENCOUNTER 2019-02-28 09:40 | Day surgery (SDC) | payer MEDICARE, MEDICAID ==
[2019-02-28] MEDS ORDERED: LIDOcaine/PRILOcaine 5gm cream TP ONE (10:17)
[2019-02-28] MEDS ORDERED: hydrocortisone 1% cream 28gm TP ONE (11:24)
--- NOTE | 2019-02-28 11:54 | NUR ---
Patient ambulated independently from [facility] and was admitted to outpatient wound care for physician visit with Eitan Osorio MD. Dressing removed, wound cleansed and lidocaine applied per order. Patient assessed for changes in conditions, medications and medical history. Dr. Osorio at bedside accompanied by RN. Wound assessed, time out performed by MD/RN. Wound debrided as detailed in the physician progress/procedure note. Plan of care discussed with patient. Dressings placed per MD orders. Patient instructed on the signs and symptoms of infection and to call the Wound Center if any occur or to go to the ED if we are closed: Increased pain in wound Increase in drainage from the wound Redness in the skin surrounding the wound Bleeding from the wound Temperature of 101 or greater Patient instructed that the weight of their body puts a large amount of pressure on their wounds. This pressure keeps the new tissue from growing and inhibits new blood vessels from forming. Explained that, if they continue to bear weight on a body part that has a wound, the time it takes to heal the wound increases, the wound may get worse or the wound may not heal at all. Patient verbalized understanding of all discharge instructions and plan of care and ambulated independently out to [facility] in stable condition with no sign or symptom of distress at time of discharge. Addendum: 02/28/19 at 1155 by Sarah Carlson RN Amended: Links added.
== END 2019-02-28 11:30 | disposition home or self-care (01) ==
LOC: WOUND CARE 09:40
PROVIDERS: ATTEND Surgery
DX: T81.89XD Other complications of procedures, not elsewhere classified, subsequent encounter (principal); L98.492 Non-pressure chronic ulcer of skin of other sites with fat layer exposed; L97.812 Non-pressure chronic ulcer of other part of right lower leg with fat layer exposed; L97.211 Non-pressure chronic ulcer of right calf limited to breakdown of skin; L88 Pyoderma gangrenosum; K21.9 Gastro-esophageal reflux disease without esophagitis; I10 Essential (primary) hypertension; G89.29 Other chronic pain; F41.9 Anxiety disorder, unspecified; F17.210 Nicotine dependence, cigarettes, uncomplicated; F11.20 Opioid dependence, uncomplicated; F15.10 Other stimulant abuse, uncomplicated; Z90.49 Acquired absence of other specified parts of digestive tract; Z89.511 Acquired absence of right leg below knee; Y83.8 Other surgical procedures as the cause of abnormal reaction of the patient, or of later complication, without mention of misadventure at the time of the procedure
CPT/HCPCS: 97597; 97598; A6021; A6206; A6213; A6446

== ENCOUNTER 2019-03-07 10:14 | Day surgery (SDC) | payer MEDICARE, MEDICAID ==
[2019-03-07] MEDS ORDERED: LIDOcaine/PRILOcaine 5gm cream TP ONE (11:12)
[2019-03-07] MEDS ORDERED: hydrocortisone 1% cream 28gm TP ONE (11:56)
--- NOTE | 2019-03-07 12:30 | NUR ---
Patient ambulated independently from [facility] and was admitted to outpatient wound care for physician visit with Eitan Osorio MD. Placed in contact isolation precautions per hospital policy. Dressing removed, wound cleansed and Emla cream applied per order. Patient assessed for changes in conditions, medications and medical history. 1150 - Dr. Osorio at bedside accompanied by RN. Wound assessed, time out performed by MD/RN. Wound debrided as detailed in the physician progress/procedure note. Plan of care discussed with patient. Dressings placed per MD orders. Patient instructed on the signs and symptoms of infection and to call the Wound Center if any occur or to go to the ED if we are closed: Increased pain in wound Increase in drainage from the wound Redness in the skin surrounding the wound Bleeding from the wound Temperature of 101 or greater Patient instructed that the weight of their body puts a large amount of pressure on their wounds. This pressure keeps the new tissue from growing and inhibits new blood vessels from forming. Explained that, if they continue to bear weight on a body part that has a wound, the time it takes to heal the wound increases, the wound may get worse or the wound may not heal at all. Patient verbalized understanding of all discharge instructions and plan of care and ambulated independently out to [facility] in stable condition with no sign or symptom of distress at time of discharge.
== END 2019-03-07 12:06 | disposition home or self-care (01) ==
LOC: WOUND CARE 10:14
PROVIDERS: ATTEND Surgery
DX: T81.89XD Other complications of procedures, not elsewhere classified, subsequent encounter (principal); L98.492 Non-pressure chronic ulcer of skin of other sites with fat layer exposed; L97.812 Non-pressure chronic ulcer of other part of right lower leg with fat layer exposed; L97.211 Non-pressure chronic ulcer of right calf limited to breakdown of skin; L88 Pyoderma gangrenosum; K21.9 Gastro-esophageal reflux disease without esophagitis; I10 Essential (primary) hypertension; G89.29 Other chronic pain; F41.9 Anxiety disorder, unspecified; F17.210 Nicotine dependence, cigarettes, uncomplicated; F11.20 Opioid dependence, uncomplicated; F15.10 Other stimulant abuse, uncomplicated; Z90.49 Acquired absence of other specified parts of digestive tract; Z89.511 Acquired absence of right leg below knee; Y83.8 Other surgical procedures as the cause of abnormal reaction of the patient, or of later complication, without mention of misadventure at the time of the procedure
CPT/HCPCS: 36416; 97597; 97598; A6021; A6212; A6243; A6446

== ENCOUNTER 2019-03-15 09:45 | Day surgery (SDC) | payer MEDICARE, MEDICAID ==
[~2019-03-15 09:45] MED LIST changes: -DOXY100C43 PO
[2019-03-15] MEDS ORDERED: LIDOcaine/PRILOcaine 5gm cream TP ONE (11:40)
[2019-03-15] MEDS ORDERED: hydrocortisone 1% cream 28gm TP ONE (13:24)
--- NOTE | 2019-03-15 16:31 | NUR ---
1000 Patient ambulated safely into [facility]. Patient admitted to outpatient wound care clinic for follow-up visit with physician. Patient placed in isolation per isolation protocol. Dressing removed, wound cleansed. Patient assessed for changes in conditions, medications and medical history. Patient showed no s/s of distress at time of assessment. 1300 at bedside accompanied by RN. Wounds assessed, time out performed and debridement done to wound #9 and epidermal graft placed on wound #8 today as detailed in the physician progress/procedure note. Plan of care discussed with patient. Dressings placed per MD orders. Patient tolerated procedures well. Patient instructed on the signs and symptoms of infection and to call the Wound Center if any occur or to go to the ED if we are closed: Increased pain in wound Increase in drainage from the wound Redness in the skin surrounding the wound Bleeding from the wound Temperature of 101 or greater Patient instructed that the weight of their body puts a large amount of pressure on their wounds. This pressure keeps the new tissue from growing and inhibits new blood vessels from forming. Explained that, if they continue to bear weight on a body part that has a wound, the time it takes to heal the wound increases, the wound may get worse or the wound may not heal at all. Patient verbalized understanding of all discharge instructions and plan of care. Patient ambulated independently out to [facility] and is in stable condition with no sign or symptom of distress at time of discharge.
== END 2019-03-15 13:25 | disposition home or self-care (01) ==
LOC: WOUND CARE 09:45
PROVIDERS: ATTEND Surgery
DX: T81.89XD Other complications of procedures, not elsewhere classified, subsequent encounter (principal); L98.492 Non-pressure chronic ulcer of skin of other sites with fat layer exposed; L97.211 Non-pressure chronic ulcer of right calf limited to breakdown of skin; L97.812 Non-pressure chronic ulcer of other part of right lower leg with fat layer exposed; L88 Pyoderma gangrenosum; K21.9 Gastro-esophageal reflux disease without esophagitis; I10 Essential (primary) hypertension; G89.29 Other chronic pain; F41.9 Anxiety disorder, unspecified; F17.210 Nicotine dependence, cigarettes, uncomplicated; F11.20 Opioid dependence, uncomplicated; F15.10 Other stimulant abuse, uncomplicated; Z90.49 Acquired absence of other specified parts of digestive tract; Z89.511 Acquired absence of right leg below knee; Y83.8 Other surgical procedures as the cause of abnormal reaction of the patient, or of later complication, without mention of misadventure at the time of the procedure
CPT/HCPCS: 15110; 97597; A6209; A6223; A6021; A6206; A6212; A6446

== ENCOUNTER 2019-03-21 10:20 | Day surgery (SDC) | payer MEDICARE, MEDICAID ==
[2019-03-21] MEDS ORDERED: hydrocortisone 1% cream 28gm TP ONE (11:11)
--- NOTE | 2019-03-21 11:30 | NUR ---
Patient ambulated independently from [facility] and was admitted to outpatient wound care for physician visit with Eitan Osorio MD. Placed in contact isolation precautions per hospital policy. Dressing removed from leg wound, wound cleansed. Opsite left on abdomen for MD. Patient assessed for changes in conditions, medications and medical history. 1045 - Dr. Osorio at bedside accompanied by RN. Wound assessed, time out performed by MD/RN. Wound debrided as detailed in the physician progress/procedure note. Plan of care discussed with patient. Dressings placed per MD orders. Patient instructed on the signs and symptoms of infection and to call the Wound Center if any occur or to go to the ED if we are closed: Increased pain in wound Increase in drainage from the wound Redness in the skin surrounding the wound Bleeding from the wound Temperature of 101 or greater Patient instructed that the weight of their body puts a large amount of pressure on their wounds. This pressure keeps the new tissue from growing and inhibits new blood vessels from forming. Explained that, if they continue to bear weight on a body part that has a wound, the time it takes to heal the wound increases, the wound may get worse or the wound may not heal at all. Patient verbalized understanding of all discharge instructions and plan of care and ambulated independently out to [facility] in stable condition with no sign or symptom of distress at time of discharge. Radha at [facility] updated on plan of care.
== END 2019-03-21 11:35 | disposition home or self-care (01) ==
LOC: WOUND CARE 10:20
PROVIDERS: ATTEND Surgery
DX: T81.89XD Other complications of procedures, not elsewhere classified, subsequent encounter (principal); L98.492 Non-pressure chronic ulcer of skin of other sites with fat layer exposed; L97.211 Non-pressure chronic ulcer of right calf limited to breakdown of skin; L97.812 Non-pressure chronic ulcer of other part of right lower leg with fat layer exposed; L88 Pyoderma gangrenosum; K21.9 Gastro-esophageal reflux disease without esophagitis; I10 Essential (primary) hypertension; G89.29 Other chronic pain; F41.9 Anxiety disorder, unspecified; F17.210 Nicotine dependence, cigarettes, uncomplicated; F11.20 Opioid dependence, uncomplicated; F15.10 Other stimulant abuse, uncomplicated; Z90.49 Acquired absence of other specified parts of digestive tract; Z89.511 Acquired absence of right leg below knee; Y83.8 Other surgical procedures as the cause of abnormal reaction of the patient, or of later complication, without mention of misadventure at the time of the procedure
CPT/HCPCS: 97597; A6209; A6021; A6206; A6446

== ENCOUNTER 2019-04-11 10:30 | Day surgery (SDC) | payer MEDICARE, MEDICAID ==
[2019-04-11] MEDS ORDERED: hydrocortisone 1% cream 28gm TP ONE (11:32)
--- NOTE | 2019-04-11 12:00 | NUR ---
Patient ambulated independently from [facility] and was admitted to outpatient wound care for physician visit with Eitan Osorio MD. Placed in contact isolation precautions per hospital policy. Dressing removed, wound cleansed and lidocaine applied per order. Patient assessed for changes in conditions, medications and medical history. 1125 - Dr. Osorio at bedside accompanied by RN. Wound assessed, time out performed by MD/RN. Wound debrided as detailed in the physician progress/procedure note. Plan of care discussed with patient. Dressings placed per MD orders. Patient instructed on the signs and symptoms of infection and to call the Wound Center if any occur or to go to the ED if we are closed: Increased pain in wound Increase in drainage from the wound Redness in the skin surrounding the wound Bleeding from the wound Temperature of 101 or greater Patient instructed that the weight of their body puts a large amount of pressure on their wounds. This pressure keeps the new tissue from growing and inhibits new blood vessels from forming. Explained that, if they continue to bear weight on a body part that has a wound, the time it takes to heal the wound increases, the wound may get worse or the wound may not heal at all. Patient verbalized understanding of all discharge instructions and plan of care and ambulated independently out to [facility] in stable condition with no sign or symptom of distress at time of discharge.
== END 2019-04-11 12:30 | disposition home or self-care (01) ==
LOC: WOUND CARE 10:30
PROVIDERS: ATTEND Surgery
DX: T81.89XD Other complications of procedures, not elsewhere classified, subsequent encounter (principal); L98.492 Non-pressure chronic ulcer of skin of other sites with fat layer exposed; L97.211 Non-pressure chronic ulcer of right calf limited to breakdown of skin; L97.812 Non-pressure chronic ulcer of other part of right lower leg with fat layer exposed; L88 Pyoderma gangrenosum; K21.9 Gastro-esophageal reflux disease without esophagitis; I10 Essential (primary) hypertension; G89.29 Other chronic pain; F41.9 Anxiety disorder, unspecified; F17.210 Nicotine dependence, cigarettes, uncomplicated; F11.20 Opioid dependence, uncomplicated; F15.10 Other stimulant abuse, uncomplicated; Z90.49 Acquired absence of other specified parts of digestive tract; Z89.511 Acquired absence of right leg below knee; Y83.8 Other surgical procedures as the cause of abnormal reaction of the patient, or of later complication, without mention of misadventure at the time of the procedure
CPT/HCPCS: 97597; 97598; A6223; A6021; A6206; A6212; A6243

== ENCOUNTER 2019-04-18 10:03 | Day surgery (SDC) | payer MEDICARE, MEDICAID ==
[2019-04-18] MEDS ORDERED: hydrocortisone 1% cream 28gm TP ONE (11:47)
--- NOTE | 2019-04-18 13:26 | NUR ---
Patient ambulated independently from [facility] and was admitted to outpatient wound care for physician visit with Eitan Osorio MD. Dressing removed, wounds cleansed and patient assessed for changes in conditions, medications and medical history. Dr. Osorio at bedside accompanied by RN. Wound assessed, time out performed by MD/RN. Wound debrided as detailed in the physician progress/procedure note. Plan of care discussed with patient. Dressings placed per MD orders. Patient instructed on the signs and symptoms of infection and to call the Wound Center if any occur or to go to the ED if we are closed: Increased pain in wound Increase in drainage from the wound Redness in the skin surrounding the wound Bleeding from the wound Temperature of 101 or greater Patient instructed that the weight of their body puts a large amount of pressure on their wounds. This pressure keeps the new tissue from growing and inhibits new blood vessels from forming. Explained that, if they continue to bear weight on a body part that has a wound, the time it takes to heal the wound increases, the wound may get worse or the wound may not heal at all. Patient verbalized understanding of all discharge instructions and plan of care and ambulated independently out to [facility] in stable condition with no sign or symptom of distress at time of discharge. Addendum: 04/18/19 at 1327 by Sarah Carlson RN Amended: Links added.
== END 2019-04-18 12:02 | disposition home or self-care (01) ==
LOC: WOUND CARE 10:03
PROVIDERS: ATTEND Surgery
DX: T81.89XD Other complications of procedures, not elsewhere classified, subsequent encounter (principal); L98.492 Non-pressure chronic ulcer of skin of other sites with fat layer exposed; L97.211 Non-pressure chronic ulcer of right calf limited to breakdown of skin; L97.812 Non-pressure chronic ulcer of other part of right lower leg with fat layer exposed; L88 Pyoderma gangrenosum; K21.9 Gastro-esophageal reflux disease without esophagitis; I10 Essential (primary) hypertension; G89.29 Other chronic pain; F41.9 Anxiety disorder, unspecified; F17.210 Nicotine dependence, cigarettes, uncomplicated; F11.20 Opioid dependence, uncomplicated; F15.10 Other stimulant abuse, uncomplicated; Z90.49 Acquired absence of other specified parts of digestive tract; Z89.511 Acquired absence of right leg below knee; Y83.8 Other surgical procedures as the cause of abnormal reaction of the patient, or of later complication, without mention of misadventure at the time of the procedure
CPT/HCPCS: 97597; 97598; A6223; A4663; A6021; A6243

== ENCOUNTER 2019-04-25 10:20 | Day surgery (SDC) | payer MEDICARE, MEDICAID ==
[2019-04-25] MEDS ORDERED: hydrocortisone 1% cream 28gm TP ONE (11:47)
--- NOTE | 2019-04-25 13:21 | NUR ---
Patient ambulated independently from [facility] and was admitted to outpatient wound care for physician visit with Eitan Osorio MD. Dressing removed, wound cleansed and lidocaine applied per order. Patient assessed for changes in conditions, medications and medical history. Dr. Osorio at bedside accompanied by RN. Wound assessed, time out performed by MD/RN. Wound debrided as detailed in the physician progress/procedure note. Plan of care discussed with patient. Dressings placed per MD orders. Patient instructed on the signs and symptoms of infection and to call the Wound Center if any occur or to go to the ED if we are closed: Increased pain in wound Increase in drainage from the wound Redness in the skin surrounding the wound Bleeding from the wound Temperature of 101 or greater Patient instructed that the weight of their body puts a large amount of pressure on their wounds. This pressure keeps the new tissue from growing and inhibits new blood vessels from forming. Explained that, if they continue to bear weight on a body part that has a wound, the time it takes to heal the wound increases, the wound may get worse or the wound may not heal at all. Patient verbalized understanding of all discharge instructions and plan of care and ambulated independently out to [facility] in stable condition with no sign or symptom of distress at time of discharge. Addendum: 04/25/19 at 1322 by Sarah Carlson RN Amended: Links added.
== END 2019-04-25 12:05 | disposition home or self-care (01) ==
LOC: WOUND CARE 10:20
PROVIDERS: ATTEND Surgery
DX: T81.89XD Other complications of procedures, not elsewhere classified, subsequent encounter (principal); L98.492 Non-pressure chronic ulcer of skin of other sites with fat layer exposed; L97.211 Non-pressure chronic ulcer of right calf limited to breakdown of skin; L97.812 Non-pressure chronic ulcer of other part of right lower leg with fat layer exposed; L88 Pyoderma gangrenosum; K21.9 Gastro-esophageal reflux disease without esophagitis; I10 Essential (primary) hypertension; G89.29 Other chronic pain; F41.9 Anxiety disorder, unspecified; F17.210 Nicotine dependence, cigarettes, uncomplicated; F11.20 Opioid dependence, uncomplicated; F15.10 Other stimulant abuse, uncomplicated; Z90.49 Acquired absence of other specified parts of digestive tract; Z89.511 Acquired absence of right leg below knee; Y83.8 Other surgical procedures as the cause of abnormal reaction of the patient, or of later complication, without mention of misadventure at the time of the procedure
CPT/HCPCS: 97597; 97598; A4663; A6021; A6243; A6446

== ENCOUNTER 2019-05-02 10:35 | Day surgery (SDC) | payer MEDICARE, MEDICAID ==
--- NOTE | 2019-05-02 14:03 | NUR ---
Patient ambulated independently from [facility] and was admitted to outpatient wound care for physician visit with Eitan Osorio MD. Dressing removed, wound cleansed and Emla cream applied per order. Patient assessed for changes in conditions, medications and medical history. Dr. Osorio at bedside accompanied by RN. Wound assessed, time out performed by MD/RN. Wound debrided as detailed in the physician progress/procedure note. Plan of care discussed with patient. Dressings placed per MD orders. Patient instructed on the signs and symptoms of infection and to call the Wound Center if any occur or to go to the ED if we are closed: Increased pain in wound Increase in drainage from the wound Redness in the skin surrounding the wound Bleeding from the wound Temperature of 101 or greater Patient instructed that the weight of their body puts a large amount of pressure on their wounds. This pressure keeps the new tissue from growing and inhibits new blood vessels from forming. Explained that, if they continue to bear weight on a body part that has a wound, the time it takes to heal the wound increases, the wound may get worse or the wound may not heal at all. Patient verbalized understanding of all discharge instructions and plan of care and ambulated independently out to [facility] in stable condition with no sign or symptom of distress at time of discharge. Addendum: 05/02/19 at 1405 by Sarah Carlson RN Amended: Links added.
== END 2019-05-02 12:10 | disposition home or self-care (01) ==
LOC: WOUND CARE 10:35
PROVIDERS: ATTEND Surgery
DX: T81.89XD Other complications of procedures, not elsewhere classified, subsequent encounter (principal); L98.492 Non-pressure chronic ulcer of skin of other sites with fat layer exposed; L97.211 Non-pressure chronic ulcer of right calf limited to breakdown of skin; L97.812 Non-pressure chronic ulcer of other part of right lower leg with fat layer exposed; L88 Pyoderma gangrenosum; K21.9 Gastro-esophageal reflux disease without esophagitis; I10 Essential (primary) hypertension; G89.29 Other chronic pain; F41.9 Anxiety disorder, unspecified; F17.210 Nicotine dependence, cigarettes, uncomplicated; F11.20 Opioid dependence, uncomplicated; F15.10 Other stimulant abuse, uncomplicated; Z90.49 Acquired absence of other specified parts of digestive tract; Z89.511 Acquired absence of right leg below knee; Y83.8 Other surgical procedures as the cause of abnormal reaction of the patient, or of later complication, without mention of misadventure at the time of the procedure
CPT/HCPCS: 15271; 15272; 97597; A6209; A6222; Q4196; A4663; A6021; A6154; A6243; A6250; A6446

== ENCOUNTER 2019-05-09 10:25 | Day surgery (SDC) | payer MEDICARE, MEDICAID | END 2019-05-09 12:40 | disposition home or self-care (01) | LOC: WOUND CARE 10:25 | PROVIDERS: ATTEND Surgery | DX: T81.89XD Other complications of procedures, not elsewhere classified, subsequent encounter (principal); L98.492 Non-pressure chronic ulcer of skin of other sites with fat layer exposed; L97.211 Non-pressure chronic ulcer of right calf limited to breakdown of skin; L97.811 Non-pressure chronic ulcer of other part of right lower leg limited to breakdown of skin; L88 Pyoderma gangrenosum; K21.9 Gastro-esophageal reflux disease without esophagitis; I10 Essential (primary) hypertension; G89.29 Other chronic pain; F41.9 Anxiety disorder, unspecified; F17.210 Nicotine dependence, cigarettes, uncomplicated; F11.20 Opioid dependence, uncomplicated; F15.10 Other stimulant abuse, uncomplicated; Z90.49 Acquired absence of other specified parts of digestive tract; Z89.511 Acquired absence of right leg below knee; Y83.8 Other surgical procedures as the cause of abnormal reaction of the patient, or of later complication, without mention of misadventure at the time of the procedure | CPT/HCPCS: 97597; 97598; A4663; A6021; A6154; A6243 ==

== ENCOUNTER 2019-05-16 10:30 | Day surgery (SDC) | payer MEDICARE, MEDICAID ==
[2019-05-16] MEDS ORDERED: LIDOcaine 2% 5ml jelly ONE (11:40)
== END 2019-05-16 12:10 | disposition home or self-care (01) ==
LOC: WOUND CARE 10:30
PROVIDERS: ATTEND Surgery
DX: T81.89XD Other complications of procedures, not elsewhere classified, subsequent encounter (principal); L98.492 Non-pressure chronic ulcer of skin of other sites with fat layer exposed; L97.211 Non-pressure chronic ulcer of right calf limited to breakdown of skin; L97.811 Non-pressure chronic ulcer of other part of right lower leg limited to breakdown of skin; L88 Pyoderma gangrenosum; K21.9 Gastro-esophageal reflux disease without esophagitis; I10 Essential (primary) hypertension; G89.29 Other chronic pain; F41.9 Anxiety disorder, unspecified; F17.210 Nicotine dependence, cigarettes, uncomplicated; F11.20 Opioid dependence, uncomplicated; F15.10 Other stimulant abuse, uncomplicated; Z90.49 Acquired absence of other specified parts of digestive tract; Z89.511 Acquired absence of right leg below knee; Y83.8 Other surgical procedures as the cause of abnormal reaction of the patient, or of later complication, without mention of misadventure at the time of the procedure
CPT/HCPCS: 97597; 97598; A4663; A6021; A6154; A6243

== ENCOUNTER 2019-05-23 10:30 | Day surgery (SDC) | payer MEDICARE, MEDICAID ==
[2019-05-23] MEDS ORDERED: LIDOcaine 2% 5ml jelly ONE (11:04)
[2019-05-23] MEDS ORDERED: silver sulfadiazine cream 50gm TP ONE (11:58)
== END 2019-05-23 12:00 | disposition home or self-care (01) ==
LOC: WOUND CARE 10:30
PROVIDERS: ATTEND Surgery
DX: T81.89XD Other complications of procedures, not elsewhere classified, subsequent encounter (principal); L98.492 Non-pressure chronic ulcer of skin of other sites with fat layer exposed; L97.211 Non-pressure chronic ulcer of right calf limited to breakdown of skin; L97.811 Non-pressure chronic ulcer of other part of right lower leg limited to breakdown of skin; L88 Pyoderma gangrenosum; K21.9 Gastro-esophageal reflux disease without esophagitis; I10 Essential (primary) hypertension; G89.29 Other chronic pain; F41.9 Anxiety disorder, unspecified; F17.210 Nicotine dependence, cigarettes, uncomplicated; F11.20 Opioid dependence, uncomplicated; F15.10 Other stimulant abuse, uncomplicated; Z90.49 Acquired absence of other specified parts of digestive tract; Z89.511 Acquired absence of right leg below knee; Y83.8 Other surgical procedures as the cause of abnormal reaction of the patient, or of later complication, without mention of misadventure at the time of the procedure
CPT/HCPCS: 97597; 97598; A4663; A6154; A6243

== ENCOUNTER 2019-05-30 10:20 | Day surgery (SDC) | payer MEDICARE, MEDICAID ==
[2019-05-30] MEDS ORDERED: LIDOcaine 2% 5ml jelly ONE (11:15)
[2019-05-30] MEDS ORDERED: silver sulfadiazine cream 50gm TP ONE (12:08)
== END 2019-05-30 12:24 | disposition home or self-care (01) ==
LOC: WOUND CARE 10:20
PROVIDERS: ATTEND Surgery
DX: T81.89XD Other complications of procedures, not elsewhere classified, subsequent encounter (principal); L98.492 Non-pressure chronic ulcer of skin of other sites with fat layer exposed; L97.211 Non-pressure chronic ulcer of right calf limited to breakdown of skin; L97.811 Non-pressure chronic ulcer of other part of right lower leg limited to breakdown of skin; L88 Pyoderma gangrenosum; K21.9 Gastro-esophageal reflux disease without esophagitis; I10 Essential (primary) hypertension; G89.29 Other chronic pain; F41.9 Anxiety disorder, unspecified; F17.210 Nicotine dependence, cigarettes, uncomplicated; F11.20 Opioid dependence, uncomplicated; F15.10 Other stimulant abuse, uncomplicated; Z90.49 Acquired absence of other specified parts of digestive tract; Z89.511 Acquired absence of right leg below knee; Y83.8 Other surgical procedures as the cause of abnormal reaction of the patient, or of later complication, without mention of misadventure at the time of the procedure
CPT/HCPCS: 97597; 97598; A4663; A6154

== ENCOUNTER 2019-06-07 09:45 | Day surgery (SDC) | payer MEDICARE, MEDICAID ==
[2019-06-07] MEDS ORDERED: LIDOcaine 2% 5ml jelly ONE (11:36)
== END 2019-06-07 12:27 | disposition home or self-care (01) ==
LOC: WOUND CARE 09:45
PROVIDERS: ATTEND Surgery
DX: T81.89XD Other complications of procedures, not elsewhere classified, subsequent encounter (principal); L98.492 Non-pressure chronic ulcer of skin of other sites with fat layer exposed; L97.211 Non-pressure chronic ulcer of right calf limited to breakdown of skin; L97.811 Non-pressure chronic ulcer of other part of right lower leg limited to breakdown of skin; L88 Pyoderma gangrenosum; K21.9 Gastro-esophageal reflux disease without esophagitis; I10 Essential (primary) hypertension; G89.29 Other chronic pain; F41.9 Anxiety disorder, unspecified; F17.210 Nicotine dependence, cigarettes, uncomplicated; F11.20 Opioid dependence, uncomplicated; F15.10 Other stimulant abuse, uncomplicated; Z90.49 Acquired absence of other specified parts of digestive tract; Z89.511 Acquired absence of right leg below knee; Y83.8 Other surgical procedures as the cause of abnormal reaction of the patient, or of later complication, without mention of misadventure at the time of the procedure
CPT/HCPCS: 15271; A6209; A6222; Q4196; A4663; A6250

== ENCOUNTER 2019-06-13 10:20 | Day surgery (SDC) | payer MEDICARE, MEDICAID ==
[2019-06-13] MEDS ORDERED: LIDOcaine 2% 5ml jelly ONE (11:07)
== END 2019-06-13 11:35 | disposition home or self-care (01) ==
LOC: WOUND CARE 10:20
PROVIDERS: ATTEND Surgery
DX: T81.89XD Other complications of procedures, not elsewhere classified, subsequent encounter (principal); L98.492 Non-pressure chronic ulcer of skin of other sites with fat layer exposed; L88 Pyoderma gangrenosum; K21.9 Gastro-esophageal reflux disease without esophagitis; I10 Essential (primary) hypertension; G89.29 Other chronic pain; F41.9 Anxiety disorder, unspecified; F17.210 Nicotine dependence, cigarettes, uncomplicated; F11.20 Opioid dependence, uncomplicated; F15.10 Other stimulant abuse, uncomplicated; Z90.49 Acquired absence of other specified parts of digestive tract; Z89.511 Acquired absence of right leg below knee; Y83.8 Other surgical procedures as the cause of abnormal reaction of the patient, or of later complication, without mention of misadventure at the time of the procedure
CPT/HCPCS: 15271; A6209; A6223; Q4160; A4663; A6250

== ENCOUNTER → 2019-06-19 | Outpatient (CLI) | payer MEDICARE, MEDICAID | END | disposition home or self-care (01) | LOC: RAD 16:30 | PROVIDERS: ATTEND Family Medicine | DX: R14.0 Abdominal distension (gaseous) (principal) | CPT/HCPCS: 74021 ==

== ENCOUNTER 2019-06-20 10:37 | Day surgery (SDC) | payer MEDICARE, MEDICAID | END 2019-06-20 11:54 | disposition home or self-care (01) | LOC: WOUND CARE 10:37 | PROVIDERS: ATTEND Surgery | DX: T81.89XD Other complications of procedures, not elsewhere classified, subsequent encounter (principal); L98.492 Non-pressure chronic ulcer of skin of other sites with fat layer exposed; L88 Pyoderma gangrenosum; K21.9 Gastro-esophageal reflux disease without esophagitis; I10 Essential (primary) hypertension; G89.29 Other chronic pain; F41.9 Anxiety disorder, unspecified; F17.210 Nicotine dependence, cigarettes, uncomplicated; F11.20 Opioid dependence, uncomplicated; F15.10 Other stimulant abuse, uncomplicated; Z90.49 Acquired absence of other specified parts of digestive tract; Z89.511 Acquired absence of right leg below knee; Y83.8 Other surgical procedures as the cause of abnormal reaction of the patient, or of later complication, without mention of misadventure at the time of the procedure | CPT/HCPCS: 97597; 97598; A4663; A6021; A6154; A6243 ==

== ENCOUNTER 2019-06-27 10:25 | Day surgery (SDC) | payer MEDICARE, MEDICAID ==
[2019-06-27] MEDS ORDERED: LIDOcaine 2% 5ml jelly ONE (11:03)
[2019-06-27] MEDS ORDERED: nystatin/triamcinolone cream 15gm TP ONE (11:40)
== END 2019-06-27 12:10 | disposition home or self-care (01) ==
LOC: WOUND CARE 10:25
PROVIDERS: ATTEND Surgery
DX: T81.89XD Other complications of procedures, not elsewhere classified, subsequent encounter (principal); L98.492 Non-pressure chronic ulcer of skin of other sites with fat layer exposed; L97.212 Non-pressure chronic ulcer of right calf with fat layer exposed; L88 Pyoderma gangrenosum; K21.9 Gastro-esophageal reflux disease without esophagitis; I10 Essential (primary) hypertension; G89.29 Other chronic pain; F41.9 Anxiety disorder, unspecified; F17.210 Nicotine dependence, cigarettes, uncomplicated; F11.20 Opioid dependence, uncomplicated; F15.10 Other stimulant abuse, uncomplicated; Z90.49 Acquired absence of other specified parts of digestive tract; Z89.511 Acquired absence of right leg below knee; Y83.8 Other surgical procedures as the cause of abnormal reaction of the patient, or of later complication, without mention of misadventure at the time of the procedure
CPT/HCPCS: 97597; 97598; J7999; A4663; A6021; A6154; A6243; A6446

== ENCOUNTER 2019-07-04 10:35 | Outpatient (CLI) | payer MEDICARE, MEDICAID ==
[2019-07-04] MEDS ORDERED: nystatin/triamcinolone cream 15gm TP ONE (11:41)
== END 2019-07-04 12:00 | disposition home or self-care (01) ==
LOC: WOUND CARE 10:35
PROVIDERS: ATTEND Surgery
DX: T81.89XD Other complications of procedures, not elsewhere classified, subsequent encounter (principal); L98.492 Non-pressure chronic ulcer of skin of other sites with fat layer exposed; L97.212 Non-pressure chronic ulcer of right calf with fat layer exposed; S81.801A Unspecified open wound, right lower leg, initial encounter; L88 Pyoderma gangrenosum; K21.9 Gastro-esophageal reflux disease without esophagitis; I10 Essential (primary) hypertension; G89.29 Other chronic pain; F41.9 Anxiety disorder, unspecified; F17.210 Nicotine dependence, cigarettes, uncomplicated; F11.20 Opioid dependence, uncomplicated; F15.10 Other stimulant abuse, uncomplicated; Z90.49 Acquired absence of other specified parts of digestive tract; Z89.511 Acquired absence of right leg below knee; X58.XXXA Exposure to other specified factors, initial encounter; Y83.8 Other surgical procedures as the cause of abnormal reaction of the patient, or of later complication, without mention of misadventure at the time of the procedure; Y93.89 Activity, other specified; Y92.89 Other specified places as the place of occurrence of the external cause; Y99.8 Other external cause status
CPT/HCPCS: A6209; G0463; J7999; A4663; A6021; A6154; A6243; A6446

== ENCOUNTER 2019-07-11 10:35 | Day surgery (SDC) | payer MEDICARE, MEDICAID ==
[2019-07-11] MEDS ORDERED: nystatin/triamcinolone cream 15gm TP ONE (12:00)
== END 2019-07-11 12:15 | disposition home or self-care (01) ==
LOC: WOUND CARE 10:35
PROVIDERS: ATTEND Surgery
DX: T81.89XD Other complications of procedures, not elsewhere classified, subsequent encounter (principal); L98.492 Non-pressure chronic ulcer of skin of other sites with fat layer exposed; L97.212 Non-pressure chronic ulcer of right calf with fat layer exposed; S81.801D Unspecified open wound, right lower leg, subsequent encounter; L88 Pyoderma gangrenosum; K21.9 Gastro-esophageal reflux disease without esophagitis; I10 Essential (primary) hypertension; G89.29 Other chronic pain; F41.9 Anxiety disorder, unspecified; F17.210 Nicotine dependence, cigarettes, uncomplicated; F11.20 Opioid dependence, uncomplicated; F15.10 Other stimulant abuse, uncomplicated; Z90.49 Acquired absence of other specified parts of digestive tract; Z89.511 Acquired absence of right leg below knee; X58.XXXD Exposure to other specified factors, subsequent encounter; Y83.8 Other surgical procedures as the cause of abnormal reaction of the patient, or of later complication, without mention of misadventure at the time of the procedure
CPT/HCPCS: 97597; 97598; J7999; A4663; A6021; A6154; A6243

== ENCOUNTER 2019-07-18 10:20 | Day surgery (SDC) | payer MEDICARE, MEDICAID ==
[2019-07-18] MEDS ORDERED: nystatin/triamcinolone cream 15gm TP ONE (11:52)
== END 2019-07-18 12:01 | disposition home or self-care (01) ==
LOC: WOUND CARE 10:20
PROVIDERS: ATTEND Surgery
DX: T81.89XD Other complications of procedures, not elsewhere classified, subsequent encounter (principal); L98.492 Non-pressure chronic ulcer of skin of other sites with fat layer exposed; L97.212 Non-pressure chronic ulcer of right calf with fat layer exposed; S81.801D Unspecified open wound, right lower leg, subsequent encounter; L88 Pyoderma gangrenosum; K21.9 Gastro-esophageal reflux disease without esophagitis; I10 Essential (primary) hypertension; G89.29 Other chronic pain; F41.9 Anxiety disorder, unspecified; F17.210 Nicotine dependence, cigarettes, uncomplicated; F11.20 Opioid dependence, uncomplicated; F15.10 Other stimulant abuse, uncomplicated; Z90.49 Acquired absence of other specified parts of digestive tract; Z89.511 Acquired absence of right leg below knee; X58.XXXD Exposure to other specified factors, subsequent encounter; Y83.8 Other surgical procedures as the cause of abnormal reaction of the patient, or of later complication, without mention of misadventure at the time of the procedure
CPT/HCPCS: 97597; 97598; J7999; A4663; A6021; A6154; A6243; A6446

== ENCOUNTER 2019-07-25 10:25 | Day surgery (SDC) | payer MEDICARE, MEDICAID ==
[2019-07-25] MEDS ORDERED: LIDOcaine 2% 5ml jelly ONE (10:49)
[2019-07-25] MEDS ORDERED: nystatin/triamcinolone cream 15gm TP ONE (11:42)
== END 2019-07-25 11:58 | disposition home or self-care (01) ==
LOC: WOUND CARE 10:25
PROVIDERS: ATTEND Surgery
DX: T81.89XD Other complications of procedures, not elsewhere classified, subsequent encounter (principal); L98.492 Non-pressure chronic ulcer of skin of other sites with fat layer exposed; L97.212 Non-pressure chronic ulcer of right calf with fat layer exposed; S81.801D Unspecified open wound, right lower leg, subsequent encounter; L88 Pyoderma gangrenosum; K21.9 Gastro-esophageal reflux disease without esophagitis; I10 Essential (primary) hypertension; G89.29 Other chronic pain; F41.9 Anxiety disorder, unspecified; F17.210 Nicotine dependence, cigarettes, uncomplicated; F11.20 Opioid dependence, uncomplicated; F15.10 Other stimulant abuse, uncomplicated; Z90.49 Acquired absence of other specified parts of digestive tract; Z89.511 Acquired absence of right leg below knee; X58.XXXD Exposure to other specified factors, subsequent encounter; Y83.8 Other surgical procedures as the cause of abnormal reaction of the patient, or of later complication, without mention of misadventure at the time of the procedure
CPT/HCPCS: 97597; 97598; J7999; A4663; A6021; A6154; A6243

== ENCOUNTER 2019-08-01 10:15 | Day surgery (SDC) | payer MEDICARE, MEDICAID ==
[2019-08-01] MEDS ORDERED: LIDOcaine 2% 5ml jelly ONE (11:44)
[2019-08-01] MEDS ORDERED: nystatin/triamcinolone cream 15gm TP ONE (11:57)
== END 2019-08-01 12:15 | disposition home or self-care (01) ==
LOC: WOUND CARE 10:15
PROVIDERS: ATTEND Surgery
DX: T81.89XD Other complications of procedures, not elsewhere classified, subsequent encounter (principal); L98.492 Non-pressure chronic ulcer of skin of other sites with fat layer exposed; L97.212 Non-pressure chronic ulcer of right calf with fat layer exposed; S81.801D Unspecified open wound, right lower leg, subsequent encounter; L88 Pyoderma gangrenosum; K21.9 Gastro-esophageal reflux disease without esophagitis; I10 Essential (primary) hypertension; G89.29 Other chronic pain; F41.9 Anxiety disorder, unspecified; F17.210 Nicotine dependence, cigarettes, uncomplicated; F11.20 Opioid dependence, uncomplicated; F15.10 Other stimulant abuse, uncomplicated; Z90.49 Acquired absence of other specified parts of digestive tract; Z89.511 Acquired absence of right leg below knee; X58.XXXD Exposure to other specified factors, subsequent encounter; Y83.8 Other surgical procedures as the cause of abnormal reaction of the patient, or of later complication, without mention of misadventure at the time of the procedure
CPT/HCPCS: 97597; J7999; A4663; A6021; A6154; A6243

== ENCOUNTER 2019-08-09 09:40 | Day surgery (SDC) | payer MEDICARE, MEDICAID ==
[2019-08-09] MEDS ORDERED: LIDOcaine 2% 5ml jelly ONE (09:54)
[2019-08-09] MEDS ORDERED: nystatin/triamcinolone cream 15gm TP ONE (10:52)
== END 2019-08-09 11:06 | disposition home or self-care (01) ==
LOC: WOUND CARE 09:40
PROVIDERS: ATTEND Surgery
DX: T81.89XD Other complications of procedures, not elsewhere classified, subsequent encounter (principal); L98.492 Non-pressure chronic ulcer of skin of other sites with fat layer exposed; L97.212 Non-pressure chronic ulcer of right calf with fat layer exposed; S81.801D Unspecified open wound, right lower leg, subsequent encounter; L88 Pyoderma gangrenosum; K21.9 Gastro-esophageal reflux disease without esophagitis; I10 Essential (primary) hypertension; G89.29 Other chronic pain; F41.9 Anxiety disorder, unspecified; F17.210 Nicotine dependence, cigarettes, uncomplicated; F11.20 Opioid dependence, uncomplicated; F15.10 Other stimulant abuse, uncomplicated; Z90.49 Acquired absence of other specified parts of digestive tract; Z89.511 Acquired absence of right leg below knee; X58.XXXD Exposure to other specified factors, subsequent encounter; Y83.8 Other surgical procedures as the cause of abnormal reaction of the patient, or of later complication, without mention of misadventure at the time of the procedure
CPT/HCPCS: 15271; 97597; A6209; J7999; Q4160; A4663; A6021; A6154; A6446

== ENCOUNTER 2019-08-16 09:40 | Day surgery (SDC) | payer MEDICARE, MEDICAID ==
[2019-08-16] MEDS ORDERED: LIDOcaine 2% 5ml jelly ONE (10:24)
[2019-08-16] MEDS ORDERED: nystatin/triamcinolone cream 15gm TP ONE (11:09)
== END 2019-08-16 11:20 | disposition home or self-care (01) ==
LOC: WOUND CARE 09:40
PROVIDERS: ATTEND Surgery
DX: T81.89XD Other complications of procedures, not elsewhere classified, subsequent encounter (principal); L98.492 Non-pressure chronic ulcer of skin of other sites with fat layer exposed; L97.212 Non-pressure chronic ulcer of right calf with fat layer exposed; S30.811A Abrasion of abdominal wall, initial encounter; L88 Pyoderma gangrenosum; K21.9 Gastro-esophageal reflux disease without esophagitis; I10 Essential (primary) hypertension; G89.29 Other chronic pain; F41.9 Anxiety disorder, unspecified; F17.210 Nicotine dependence, cigarettes, uncomplicated; F11.20 Opioid dependence, uncomplicated; F15.10 Other stimulant abuse, uncomplicated; Z90.49 Acquired absence of other specified parts of digestive tract; Z89.511 Acquired absence of right leg below knee; X58.XXXA Exposure to other specified factors, initial encounter; Y93.89 Activity, other specified; Y92.89 Other specified places as the place of occurrence of the external cause; Y99.8 Other external cause status; Y83.8 Other surgical procedures as the cause of abnormal reaction of the patient, or of later complication, without mention of misadventure at the time of the procedure
CPT/HCPCS: A6209; A6222; C5275; J7999; Q4102; A4663; A6021; A6154; A6250; A6446

== ENCOUNTER 2019-08-23 09:37 | Day surgery (SDC) | payer MEDICARE, MEDICAID ==
[2019-08-23] MEDS ORDERED: LIDOcaine 2% 5ml jelly ONE (10:33)
== END 2019-08-23 11:04 | disposition home or self-care (01) ==
LOC: WOUND CARE 09:37
PROVIDERS: ATTEND Surgery
DX: T81.89XD Other complications of procedures, not elsewhere classified, subsequent encounter (principal); L98.492 Non-pressure chronic ulcer of skin of other sites with fat layer exposed; L97.212 Non-pressure chronic ulcer of right calf with fat layer exposed; S30.811D Abrasion of abdominal wall, subsequent encounter; L88 Pyoderma gangrenosum; K21.9 Gastro-esophageal reflux disease without esophagitis; I10 Essential (primary) hypertension; G89.29 Other chronic pain; F41.9 Anxiety disorder, unspecified; F17.210 Nicotine dependence, cigarettes, uncomplicated; F11.20 Opioid dependence, uncomplicated; F15.10 Other stimulant abuse, uncomplicated; Z90.49 Acquired absence of other specified parts of digestive tract; Z89.511 Acquired absence of right leg below knee; X58.XXXD Exposure to other specified factors, subsequent encounter; Y83.8 Other surgical procedures as the cause of abnormal reaction of the patient, or of later complication, without mention of misadventure at the time of the procedure
CPT/HCPCS: 97597; A6209; A6222; C5271; Q4102; A4663; A6213; A6250

== ENCOUNTER 2019-09-03 10:05 | Day surgery (SDC) | payer MEDICARE, MEDICAID ==
[2019-09-03] MEDS ORDERED: LIDOcaine 2% 5ml jelly ONE (11:49)
[2019-09-03] MEDS ORDERED: nystatin/triamcinolone cream 15gm TP ONE ×2 (12:20→12:34)
== END 2019-09-03 12:42 | disposition home or self-care (01) ==
LOC: WOUND CARE 10:05
PROVIDERS: ATTEND Surgery
DX: T81.89XD Other complications of procedures, not elsewhere classified, subsequent encounter (principal); L98.492 Non-pressure chronic ulcer of skin of other sites with fat layer exposed; S30.811D Abrasion of abdominal wall, subsequent encounter; L88 Pyoderma gangrenosum; K21.9 Gastro-esophageal reflux disease without esophagitis; I10 Essential (primary) hypertension; G89.29 Other chronic pain; F41.9 Anxiety disorder, unspecified; F17.210 Nicotine dependence, cigarettes, uncomplicated; F11.20 Opioid dependence, uncomplicated; F15.10 Other stimulant abuse, uncomplicated; Z90.49 Acquired absence of other specified parts of digestive tract; Z89.511 Acquired absence of right leg below knee; X58.XXXD Exposure to other specified factors, subsequent encounter; Y83.8 Other surgical procedures as the cause of abnormal reaction of the patient, or of later complication, without mention of misadventure at the time of the procedure
CPT/HCPCS: 15271; 87070; 87075; 87102; 87176; 97597; A6209; A6222; J7999; Q4196; 87077; 87186; A4663; A6243; A6250

== ENCOUNTER 2019-09-10 10:00 | Outpatient (CLI) | payer MEDICARE, MEDICAID | END 2019-09-10 12:27 | disposition home or self-care (01) | LOC: EDSTATUS 10:00 → WOUND CARE 10:00 | PROVIDERS: ATTEND Surgery | DX: T81.89XD Other complications of procedures, not elsewhere classified, subsequent encounter (principal); L98.492 Non-pressure chronic ulcer of skin of other sites with fat layer exposed; S30.811D Abrasion of abdominal wall, subsequent encounter; L88 Pyoderma gangrenosum; K21.9 Gastro-esophageal reflux disease without esophagitis; I10 Essential (primary) hypertension; G89.29 Other chronic pain; F41.9 Anxiety disorder, unspecified; F17.210 Nicotine dependence, cigarettes, uncomplicated; F11.20 Opioid dependence, uncomplicated; F15.10 Other stimulant abuse, uncomplicated; Z90.49 Acquired absence of other specified parts of digestive tract; Z89.511 Acquired absence of right leg below knee; X58.XXXD Exposure to other specified factors, subsequent encounter; Y83.8 Other surgical procedures as the cause of abnormal reaction of the patient, or of later complication, without mention of misadventure at the time of the procedure | CPT/HCPCS: A4663; A6154; A6243; G0463 ==

== ENCOUNTER 2019-09-17 10:09 | Day surgery (SDC) | payer MEDICARE, MEDICAID ==
[2019-09-17] MEDS ORDERED: LIDOcaine 2% 5ml jelly ONE (11:55)
[2019-09-17] MEDS ORDERED: nystatin/triamcinolone cream 15gm TP ONE (12:53)
== END 2019-09-17 13:05 | disposition home or self-care (01) ==
LOC: WOUND CARE 10:09
PROVIDERS: ATTEND Surgery
DX: T81.89XD Other complications of procedures, not elsewhere classified, subsequent encounter (principal); L98.492 Non-pressure chronic ulcer of skin of other sites with fat layer exposed; S30.811D Abrasion of abdominal wall, subsequent encounter; L88 Pyoderma gangrenosum; K21.9 Gastro-esophageal reflux disease without esophagitis; I10 Essential (primary) hypertension; G89.29 Other chronic pain; F41.9 Anxiety disorder, unspecified; F17.210 Nicotine dependence, cigarettes, uncomplicated; F11.20 Opioid dependence, uncomplicated; F15.10 Other stimulant abuse, uncomplicated; Z90.49 Acquired absence of other specified parts of digestive tract; Z89.511 Acquired absence of right leg below knee; X58.XXXD Exposure to other specified factors, subsequent encounter; Y83.8 Other surgical procedures as the cause of abnormal reaction of the patient, or of later complication, without mention of misadventure at the time of the procedure
CPT/HCPCS: 15271; A6209; J7999; Q4196; A4663; A6154; A6243; A6250

== ENCOUNTER 2019-10-04 09:05 | Day surgery (SDC) | payer MEDICARE, MEDICAID ==
[2019-10-04] MEDS ORDERED: LIDOcaine 2% 5ml jelly ONE (09:40)
[2019-10-04] MEDS ORDERED: nystatin/triamcinolone cream 15gm TP ONE (10:57)
== END 2019-10-04 11:16 | disposition home or self-care (01) ==
LOC: WOUND CARE 09:05
PROVIDERS: ATTEND Nurse Practitioner Family
DX: T81.89XD Other complications of procedures, not elsewhere classified, subsequent encounter (principal); L98.492 Non-pressure chronic ulcer of skin of other sites with fat layer exposed; S30.811D Abrasion of abdominal wall, subsequent encounter; L88 Pyoderma gangrenosum; K21.9 Gastro-esophageal reflux disease without esophagitis; I10 Essential (primary) hypertension; G89.29 Other chronic pain; F41.9 Anxiety disorder, unspecified; F17.210 Nicotine dependence, cigarettes, uncomplicated; F11.20 Opioid dependence, uncomplicated; F15.10 Other stimulant abuse, uncomplicated; Z90.49 Acquired absence of other specified parts of digestive tract; Z89.511 Acquired absence of right leg below knee; X58.XXXD Exposure to other specified factors, subsequent encounter; Y83.8 Other surgical procedures as the cause of abnormal reaction of the patient, or of later complication, without mention of misadventure at the time of the procedure
CPT/HCPCS: 97597; 97598; J7999; A6021; A6154; A6243

== ENCOUNTER 2019-10-10 09:45 | Day surgery (SDC) | payer MEDICARE, MEDICAID ==
[2019-10-10] MEDS ORDERED: LIDOcaine 2% 5ml jelly ONE (10:14)
[2019-10-10] MEDS ORDERED: gentamicin 0.1% topical ointment 15gm TP ONE (11:45)
== END 2019-10-10 12:02 | disposition home or self-care (01) ==
LOC: WOUND CARE 09:45
PROVIDERS: ATTEND Surgery
DX: T81.89XD Other complications of procedures, not elsewhere classified, subsequent encounter (principal); L98.492 Non-pressure chronic ulcer of skin of other sites with fat layer exposed; L88 Pyoderma gangrenosum; K21.9 Gastro-esophageal reflux disease without esophagitis; I10 Essential (primary) hypertension; G89.29 Other chronic pain; F41.9 Anxiety disorder, unspecified; F17.210 Nicotine dependence, cigarettes, uncomplicated; F11.20 Opioid dependence, uncomplicated; F15.10 Other stimulant abuse, uncomplicated; Z90.49 Acquired absence of other specified parts of digestive tract; Z89.511 Acquired absence of right leg below knee; Y83.8 Other surgical procedures as the cause of abnormal reaction of the patient, or of later complication, without mention of misadventure at the time of the procedure
CPT/HCPCS: 97597; 97598; A4663; A6243

== ENCOUNTER 2019-10-17 09:30 | Day surgery (SDC) | payer MEDICARE, MEDICAID ==
[~2019-10-17 09:30] MED LIST changes: +BUPR-72 PO; -BUPR-84 PO
[2019-10-17] MEDS ORDERED: LIDOcaine 2% 5ml jelly ONE ×2 (10:05)
[2019-10-17] MEDS ORDERED: gentamicin 0.1% topical ointment 15gm TP ONE (11:05)
== END 2019-10-17 11:15 | disposition home or self-care (01) ==
LOC: WOUND CARE 09:30
PROVIDERS: ATTEND Surgery
DX: T81.89XD Other complications of procedures, not elsewhere classified, subsequent encounter (principal); L98.492 Non-pressure chronic ulcer of skin of other sites with fat layer exposed; L88 Pyoderma gangrenosum; K21.9 Gastro-esophageal reflux disease without esophagitis; I10 Essential (primary) hypertension; G89.29 Other chronic pain; F41.9 Anxiety disorder, unspecified; F17.210 Nicotine dependence, cigarettes, uncomplicated; F11.20 Opioid dependence, uncomplicated; F15.10 Other stimulant abuse, uncomplicated; Z90.49 Acquired absence of other specified parts of digestive tract; Z89.511 Acquired absence of right leg below knee; Y83.8 Other surgical procedures as the cause of abnormal reaction of the patient, or of later complication, without mention of misadventure at the time of the procedure
CPT/HCPCS: 97597; 97598; A6223; A4663; A6243

== ENCOUNTER 2019-10-24 09:45 | Day surgery (SDC) | payer MEDICARE, MEDICAID ==
[2019-10-24] MEDS ORDERED: LIDOcaine 2% 5ml jelly ONE (10:06)
[2019-10-24] MEDS ORDERED: gentamicin 0.1% topical ointment 15gm TP ONE (10:21)
== END 2019-10-24 10:30 | disposition home or self-care (01) ==
LOC: WOUND CARE 09:45
PROVIDERS: ATTEND Surgery
DX: T81.89XD Other complications of procedures, not elsewhere classified, subsequent encounter (principal); L98.492 Non-pressure chronic ulcer of skin of other sites with fat layer exposed; L88 Pyoderma gangrenosum; K21.9 Gastro-esophageal reflux disease without esophagitis; I10 Essential (primary) hypertension; G89.29 Other chronic pain; F41.9 Anxiety disorder, unspecified; F17.210 Nicotine dependence, cigarettes, uncomplicated; F11.20 Opioid dependence, uncomplicated; F15.10 Other stimulant abuse, uncomplicated; Z90.49 Acquired absence of other specified parts of digestive tract; Z89.511 Acquired absence of right leg below knee; Y83.8 Other surgical procedures as the cause of abnormal reaction of the patient, or of later complication, without mention of misadventure at the time of the procedure
CPT/HCPCS: 97597; 97598; A6223; A4663; A6243

== ENCOUNTER 2019-10-31 10:05 | Day surgery (SDC) | payer MEDICARE, MEDICAID ==
[2019-10-31] MEDS ORDERED: LIDOcaine 2% 5ml jelly ONE (10:54)
[2019-10-31] MEDS ORDERED: gentamicin 0.1% topical ointment 15gm TP ONE (11:48)
== END 2019-10-31 12:05 | disposition home or self-care (01) ==
LOC: WOUND CARE 10:05
PROVIDERS: ATTEND Surgery
DX: T81.89XD Other complications of procedures, not elsewhere classified, subsequent encounter (principal); L98.492 Non-pressure chronic ulcer of skin of other sites with fat layer exposed; L88 Pyoderma gangrenosum; K21.9 Gastro-esophageal reflux disease without esophagitis; I10 Essential (primary) hypertension; G89.4 Chronic pain syndrome; F41.9 Anxiety disorder, unspecified; F32.9 Major depressive disorder, single episode, unspecified; F17.210 Nicotine dependence, cigarettes, uncomplicated; F11.20 Opioid dependence, uncomplicated; F15.10 Other stimulant abuse, uncomplicated; Z90.49 Acquired absence of other specified parts of digestive tract; Z89.511 Acquired absence of right leg below knee; Y83.8 Other surgical procedures as the cause of abnormal reaction of the patient, or of later complication, without mention of misadventure at the time of the procedure
CPT/HCPCS: 97597; 97598; A4663; A6154; A6243

== ENCOUNTER 2019-11-07 09:46 | Day surgery (SDC) | payer MEDICARE, MEDICAID ==
[2019-11-07] MEDS ORDERED: LIDOcaine 2% 5ml jelly ONE (10:13)
[2019-11-07] MEDS ORDERED: gentamicin 0.1% topical ointment 15gm TP ONE (11:06)
== END 2019-11-07 11:16 | disposition home or self-care (01) ==
LOC: WOUND CARE 09:46
PROVIDERS: ATTEND Surgery
DX: T81.89XD Other complications of procedures, not elsewhere classified, subsequent encounter (principal); L98.492 Non-pressure chronic ulcer of skin of other sites with fat layer exposed; L88 Pyoderma gangrenosum; K21.9 Gastro-esophageal reflux disease without esophagitis; I10 Essential (primary) hypertension; G89.4 Chronic pain syndrome; F41.9 Anxiety disorder, unspecified; F32.9 Major depressive disorder, single episode, unspecified; F17.210 Nicotine dependence, cigarettes, uncomplicated; F11.20 Opioid dependence, uncomplicated; F15.10 Other stimulant abuse, uncomplicated; Z90.49 Acquired absence of other specified parts of digestive tract; Z89.511 Acquired absence of right leg below knee; Y83.8 Other surgical procedures as the cause of abnormal reaction of the patient, or of later complication, without mention of misadventure at the time of the procedure
CPT/HCPCS: 97597; 97598

== ENCOUNTER 2019-11-15 09:29 | Day surgery (SDC) | payer MEDICARE, MEDICAID ==
[2019-11-15] MEDS ORDERED: LIDOcaine 2% 5ml jelly ONE (09:41)
[2019-11-15] MEDS ORDERED: gentamicin 0.1% topical ointment 15gm TP ONE (09:55)
== END 2019-11-15 10:05 | disposition home or self-care (01) ==
LOC: WOUND CARE 09:29
PROVIDERS: ATTEND Surgery
DX: T81.89XD Other complications of procedures, not elsewhere classified, subsequent encounter (principal); L98.492 Non-pressure chronic ulcer of skin of other sites with fat layer exposed; L88 Pyoderma gangrenosum; K21.9 Gastro-esophageal reflux disease without esophagitis; I10 Essential (primary) hypertension; G89.4 Chronic pain syndrome; F41.9 Anxiety disorder, unspecified; F32.9 Major depressive disorder, single episode, unspecified; F17.210 Nicotine dependence, cigarettes, uncomplicated; F11.20 Opioid dependence, uncomplicated; F15.10 Other stimulant abuse, uncomplicated; Z90.49 Acquired absence of other specified parts of digestive tract; Z89.511 Acquired absence of right leg below knee; Y83.8 Other surgical procedures as the cause of abnormal reaction of the patient, or of later complication, without mention of misadventure at the time of the procedure
CPT/HCPCS: 97597; 97598

== ENCOUNTER 2019-11-21 09:33 | Day surgery (SDC) | payer MEDICARE, MEDICAID ==
[2019-11-21] MEDS ORDERED: LIDOcaine 2% 5ml jelly ONE (09:59)
[2019-11-21] MEDS ORDERED: gentamicin 0.1% topical ointment 15gm TP ONE (10:23)
== END 2019-11-21 10:29 | disposition home or self-care (01) ==
LOC: WOUND CARE 09:33
PROVIDERS: ATTEND Surgery
DX: T81.89XD Other complications of procedures, not elsewhere classified, subsequent encounter (principal); L98.492 Non-pressure chronic ulcer of skin of other sites with fat layer exposed; L88 Pyoderma gangrenosum; K21.9 Gastro-esophageal reflux disease without esophagitis; I10 Essential (primary) hypertension; G89.4 Chronic pain syndrome; F41.9 Anxiety disorder, unspecified; F32.9 Major depressive disorder, single episode, unspecified; F17.210 Nicotine dependence, cigarettes, uncomplicated; F11.20 Opioid dependence, uncomplicated; F15.10 Other stimulant abuse, uncomplicated; Z90.49 Acquired absence of other specified parts of digestive tract; Z89.511 Acquired absence of right leg below knee; Y83.8 Other surgical procedures as the cause of abnormal reaction of the patient, or of later complication, without mention of misadventure at the time of the procedure
CPT/HCPCS: 15271; Q4160

== ENCOUNTER 2019-11-28 09:35 | Day surgery (SDC) | payer MEDICARE, MEDICAID ==
[2019-11-28] MEDS ORDERED: LIDOcaine 2% 5ml jelly ONE (10:08)
== END 2019-11-28 11:20 | disposition home or self-care (01) ==
LOC: WOUND CARE 09:35
PROVIDERS: ATTEND Surgery
DX: T81.89XD Other complications of procedures, not elsewhere classified, subsequent encounter (principal); L98.492 Non-pressure chronic ulcer of skin of other sites with fat layer exposed; L88 Pyoderma gangrenosum; K21.9 Gastro-esophageal reflux disease without esophagitis; I10 Essential (primary) hypertension; G89.4 Chronic pain syndrome; F41.9 Anxiety disorder, unspecified; F32.9 Major depressive disorder, single episode, unspecified; F17.210 Nicotine dependence, cigarettes, uncomplicated; F11.20 Opioid dependence, uncomplicated; F15.10 Other stimulant abuse, uncomplicated; Z90.49 Acquired absence of other specified parts of digestive tract; Z89.511 Acquired absence of right leg below knee; Y83.8 Other surgical procedures as the cause of abnormal reaction of the patient, or of later complication, without mention of misadventure at the time of the procedure
CPT/HCPCS: 97597; 97598

== ENCOUNTER 2019-12-05 09:50 | Day surgery (SDC) | payer MEDICARE, MEDICAID ==
[2019-12-05] MEDS ORDERED: LIDOcaine 2% 5ml jelly ONE (10:13)
[2019-12-05] MEDS ORDERED: gentamicin 0.1% topical ointment 15gm TP ONE (10:57)
== END 2019-12-05 11:35 | disposition home or self-care (01) ==
LOC: WOUND CARE 09:50
PROVIDERS: ATTEND Surgery
DX: T81.89XD Other complications of procedures, not elsewhere classified, subsequent encounter (principal); L98.492 Non-pressure chronic ulcer of skin of other sites with fat layer exposed; L88 Pyoderma gangrenosum; K21.9 Gastro-esophageal reflux disease without esophagitis; I10 Essential (primary) hypertension; G89.4 Chronic pain syndrome; F41.9 Anxiety disorder, unspecified; F32.9 Major depressive disorder, single episode, unspecified; F17.210 Nicotine dependence, cigarettes, uncomplicated; F11.20 Opioid dependence, uncomplicated; F15.10 Other stimulant abuse, uncomplicated; Z90.49 Acquired absence of other specified parts of digestive tract; Z89.511 Acquired absence of right leg below knee; Y83.8 Other surgical procedures as the cause of abnormal reaction of the patient, or of later complication, without mention of misadventure at the time of the procedure
CPT/HCPCS: 97597; 97598; A4663; A6021; A6154; A6253

== ENCOUNTER 2019-12-12 09:36 | Day surgery (SDC) | payer MEDICARE, MEDICAID ==
[2019-12-12] MEDS ORDERED: gentamicin 0.1% topical ointment 15gm TP ONE (10:31)
== END 2019-12-12 10:49 | disposition home or self-care (01) ==
LOC: WOUND CARE 09:36
PROVIDERS: ATTEND Surgery
DX: T81.89XD Other complications of procedures, not elsewhere classified, subsequent encounter (principal); L98.492 Non-pressure chronic ulcer of skin of other sites with fat layer exposed; L88 Pyoderma gangrenosum; K21.9 Gastro-esophageal reflux disease without esophagitis; I10 Essential (primary) hypertension; G89.4 Chronic pain syndrome; F41.9 Anxiety disorder, unspecified; F32.9 Major depressive disorder, single episode, unspecified; F17.210 Nicotine dependence, cigarettes, uncomplicated; F11.20 Opioid dependence, uncomplicated; F15.10 Other stimulant abuse, uncomplicated; Z90.49 Acquired absence of other specified parts of digestive tract; Z89.511 Acquired absence of right leg below knee; Y83.8 Other surgical procedures as the cause of abnormal reaction of the patient, or of later complication, without mention of misadventure at the time of the procedure
CPT/HCPCS: C5271; C5272; Q4102; 15271; 15272; A4663; A6154; A6253

== ENCOUNTER 2019-12-19 09:33 | Day surgery (SDC) | payer MEDICARE, MEDICAID ==
[2019-12-19] MEDS ORDERED: LIDOcaine 2% 5ml jelly ONE (09:47)
[2019-12-19] MEDS ORDERED: gentamicin 0.1% topical ointment 15gm TP ONE (10:52)
== END 2019-12-19 11:02 | disposition home or self-care (01) ==
LOC: WOUND CARE 09:33
PROVIDERS: ATTEND Surgery
DX: T81.89XD Other complications of procedures, not elsewhere classified, subsequent encounter (principal); L98.492 Non-pressure chronic ulcer of skin of other sites with fat layer exposed; L88 Pyoderma gangrenosum; K21.9 Gastro-esophageal reflux disease without esophagitis; I10 Essential (primary) hypertension; G89.4 Chronic pain syndrome; F41.9 Anxiety disorder, unspecified; F32.9 Major depressive disorder, single episode, unspecified; F17.210 Nicotine dependence, cigarettes, uncomplicated; F11.20 Opioid dependence, uncomplicated; F15.10 Other stimulant abuse, uncomplicated; Z90.49 Acquired absence of other specified parts of digestive tract; Z89.511 Acquired absence of right leg below knee; Y83.8 Other surgical procedures as the cause of abnormal reaction of the patient, or of later complication, without mention of misadventure at the time of the procedure
CPT/HCPCS: 97597; A4663; A6154; A6253